=== PATIENT | male | born 1985 | race Caucasian/White ===

== ENCOUNTER 2018-07-15 16:43 | Inpatient (IN) | payer BC, OTHER ==
[~2018-07-15] VITALS: Ht 177.8 cm; Wt 108.6 kg
[2018-07-15] MEDS ORDERED: NS 1,000 ML IV ONE (17:15)
[2018-07-15 17:52] LABS: BASO % 0.4 % (0.0-1.0); HEMATOCRIT 29.6 % (42.0-52.0); HEMOGLOBIN 9.9 g/dl (13.5-17.5); LYMPH # 0.7 10^3/uL (1.5-4.5); LYMPH % 6.4 % (24.0-44.0); MEAN CORPUSCULAR HEMOGLOBIN 29.6 pg (27.0-33.0); MEAN CORPUSCULAR HGB CONC 33.4 g/dl (32.0-36.5); MEAN CORPUSCULAR VOLUME 88.4 fl (80.0-96.0); MONO # 0.2 10^3/uL (0.0-0.8); NEUTROPHILS # 10.1 10^3/uL (1.8-7.7); NEUTROPHILS % 90.1 % (36.0-66.0); PLATELET COUNT, AUTOMATED 317 10^3/uL (150-450); RED BLOOD COUNT 3.35 10^6/uL (4.30-6.10); WHITE BLOOD COUNT 11.2 10^3/uL (4.0-10.0)
[2018-07-15] MEDS ORDERED: ACETAMINOPHEN TAB 650MG DOSE (2X325MG) PO PRN (18:15)
[2018-07-15 18:19] LABS: AMPHETAMINES LEVEL URINE NEGATIVE (NEGATIVE); BARBITURATES URINE NEGATIVE (NEGATIVE); BENZODIAZEPINES URINE NEGATIVE (NEGATIVE); CANNABINOIDS URINE NEGATIVE (NEGATIVE); COCAINE METABOLITE URINE NEGATIVE (NEGATIVE); METHADONE URINE NEGATIVE (NEGATIVE); OPIATES URINE NEGATIVE (NEGATIVE); PHENCYCLIDINE URINE NEGATIVE (NEGATIVE)
[2018-07-15] MEDS ORDERED: NS 1,000 ML IV SCH (18:30)
[2018-07-15 18:46] LABS: INFLUENZA A AMPLIFICATION NEGATIVE (NEGATIVE); INFLUENZA B AMPLIFICATION NEGATIVE (NEGATIVE)
[2018-07-15 18:54] LABS: ACETAMINOPHEN LEVEL < 2.0 UG/ML (10.0-30.0); ALBUMIN 2.4 GM/DL (3.2-5.2); ALT/SGPT 16 U/L (12-78); BILIRUBIN,DIRECT < 0.1 MG/DL (0.0-0.2); BILIRUBIN,TOTAL 0.3 MG/DL (0.2-1.0); BLOOD UREA NITROGEN 37 MG/DL (7-18); CALCIUM LEVEL 7.5 MG/DL (8.5-10.1); CARBON DIOXIDE LEVEL 16 MEQ/L (21-32); CHLORIDE LEVEL 113 MEQ/L (98-107); CPK CREATINE PHOSPHOKINASE 135 U/L (39-308); CREATININE FOR GFR 6.07 MG/DL (0.70-1.30); GLOMERULAR FILTRATION RATE 11.4 (>60); GLUCOSE, FASTING 134 MG/DL (70-100); MAGNESIUM LEVEL 2.1 MG/DL (1.8-2.4); PHOSPHORUS LEVEL 4.7 MG/DL (2.5-4.9); POTASSIUM SERUM 4.1 MEQ/L (3.5-5.1); SALICYLATE LEVEL < 1.7 MG/DL (5.0-30.0); SODIUM LEVEL 142 MEQ/L (136-145); TOTAL PROTEIN 5.2 GM/DL (6.4-8.2)
--- NOTE | 2018-07-15 19:23 | ECGEPIP ---
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
--- NOTE | 2018-07-15 19:37 | HPEPDOC ---
[facility] Medical History & Physical Date of Admission Jul 15, 2018 Attending Physician: KRISTIE SCHULTE MD History and Physical CHIEF COMPLAINT: Cold-like symptoms, ARF HISTORY OF PRESENT ILLNESS: Patient is a 33-year-old white male with a past medical history significant for hypertension, exerciseinduced asthma and migraine headache who presents to the emergency department today from [facility] with with cold-like symptoms for the past 2 days. Patient was found to have abnormal renal labs and was scheduled to be transferred to [facility] for acute renal failure. Patient signed out AMA and presented to [facility] emergency department for further management and evaluation. Patient initially presented to [facility] ER complaining of 3 day history of nonproductive cough, wheezing and bilateral chest pain on inspiration. Patient was afebrile, respiration rate of 18, 98% O2 saturation on room air. Initial blood pressure reading of 161/91. He shares that his 5-year-old daughter had been sick about a week ago. Patient has a history of asthma and utilizes an inhaler as needed. He reports that his inhaler did not relieve his symptoms, which prompted his presentation. He reports that 3 days ago he took 2x 100 mg amoxicillin pills prescribed to his dog. Yesterday, patient took a single pill of 100 mg amoxicillin. Patient denies any other recent medication use, including NSAIDs. He denies any adverse side effects. He denies recent diarrhea, vomiting or dehydration. No history of urinary retention or obstruction. In [facility] emergency department patient was given a 10 mg IVP of dexamethasone which caused a flushing rash. Patient was subsequently given Benadryl 12.5 IVP with complete resolution. He also received a DuoNeb and Xopenex treatment and normal saline. Chest x-ray was performed and indicated no focal consolidation. A UA indicated 3+ protein 500 urine glucose 2+ blood. Strep negative. CBC demonstrated an H/H of 10.2/29.1, no leukocytosis. CMP showed BUN of 36 and a creatinine of 6.3. Previous CMP obtained in 02/07 indicated a BUN of 14 and a creatinine of 1.1. Patient elected to sign out AMA and presented to [facility] in lieu of being transferred to [facility]. Upon presentation to [facility], patient was given an IV bolus of normal saline. Repeat CBC and CMP relatively unchanged from prior studies at [facility]. Toxicology screen negative. Influenza negative. UA demonstrating 3+ protein and 3+ glucose. Hospitalist team was called to admit for further evaluation and management of the patient. 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 Prior tobacco history of one pack per day for roughly 10 years. ETOH: Reports binge drinking in his 20s. No current alcohol abuse. Drug use: Patient denies illicit or intravenous drug use FAMILY HISTORY: Father: Alive, healthy Mother: Alive, healthy Siblings: One brother, healthy Children: One daughter, healthy ALLERGIES: Please see below. REVIEW OF SYSTEMS: CONSTITUTIONAL: Patient reports a brief episode of night sweats last evening. He reports 3 days of fatigue. He denies any fever, chills or changes in weight HEENT: Reports bilateral temporal headache today, reports week history of nasal congestion. Denies ear pain, changes in vision, difficulty swallowing. No hearing loss CARDIOVASCULAR: Regular rate and rhythm, normal S1-S2 no murmurs appreciated RESPIRATORY: Reports 3 day history of increasing shortness of breath with exertion, unrelieved with rescue inhaler. 2-3 day history of nonproductive cough GASTROINTESTINAL: Reports history of reflux, denies nausea or vomiting/hematemesis. Denies abdominal pain, constipation, diarrhea GENITOURINARY: Denies dysuria, hesitancy, frequency, retention, hematuria SKIN: Denies new/evolving skin lesions, denies rash MUSCULOSKELETAL: Denies muscle weakness NEUROLOGICAL: Denies any focal neurologic deficits, change in sensation PSYCHIATRIC: Reports anxiety regarding the custody of his daughter ENDOCRINE: Denies heat or cold intolerance HOME MEDICATIONS: Please see below. PHYSICAL EXAMINATION: VITAL SIGNS: Temperature 97.6, pulse 126, respiratory rate 17, blood pressure 17 5/97 (123) pulse oximetry 96 % on room air. GENERAL APPEARANCE: Patient is awake and alert, no acute distress, able to participate in his care. HEENT: Normocephalic, atraumatic sinus tenderness EOMI PERRLA, no scleral icterus, mucous membranes moist, tympanic membranes free of signs of infection bilaterally. CARDIOVASCULAR: Regular rate and rhythm no murmurs gallops or rubs LUNGS: Clear to auscultation bilaterally, no wheezing rales or rhonchi ABDOMEN: Protuberant, soft, nontender, normal bowel sounds throughout, : No suprapubic tenderness, no CVA tenderness MUSCULOSKELETAL: No weakness appreciated EXTREMITIES: No lower extremity edema, no calf tenderness, peripheral pulses 2+ via radial and DP NEUROLOGICAL: Cranial nerves II through XII grossly intact, strength in extremities intact, no focal neurologic deficit PSYCHIATRIC: Mood and affect are appropriate LABORATORY DATA: See below. IMAGING: Chest x-ray from [facility] (07/15/18): No focal consolidation ASSESSMENT: Patient is a 33-year-old white male who presents to [facility] from [facility] with laboratory evidence of acute renal failure in the setting of 3 day history of cold-like symptoms. PLAN: Acute renal failure - likely secondary to chronic hypertension - Patient presents with a BUN/creatinine of 36/6.3. Baseline studies from 2016 indicate a BUN/creatinine of 14/1.1. - UA negative for nitrite/leukocyte esterase make and infection unlikely. [facility] UA did indicate 2+ blood with no RBCs. Consider rhabdomyolysis. No granular casts, which decreased likelihood of ATN. Confirm with urinary sodium greater than 20. - BUN: Creatinine ratio less than 20:1 suggestive of intra-renal pathology. Should be confirmed using urine osmolality and urine sodium. - Renal ultrasound ordered, consider postvoid residual if postrenal cause suspected. - No rash / skin manifestations or hemoptysis, lowering causes such as HSP and Goodpasture's disease on the differential - No anemia on CBC lowering the likelihood of anemia - Continue with IV hydration - Serial CBCs and BMPs to monitor for anemia and electrolyte abnormalities - Nephrology consulted and we will follow their recommendations Essential hypertension - Patient has a long-standing history of hypertension. Per the medical record, patient was previously seen at a local outpatient office where he was diagnosed with essential hypertension and treated with amlodipine 5 mg daily. He reports that he has not been taking his medication or seen in his physician since September 2017. - Restart amlodipine 5 mg by mouth daily, avoid KALPANA inhibitor until cause of acute renal failure is determined - PRN hydralazine if tighter control required - Monitor for improvement URI - Supportive care including fluids and Tylenol for fever - Monitor for signs of infection with serial - Breathing treatments as needed DVT prophylaxis: Heparin SQ Sequential's Vital Signs Vital Signs Date Time Temp Pulse Resp B/P (MAP) Pulse Ox O2 Delivery O2 Flow Rate FiO2 07/15/18 17:31 172/104 (126) 07/15/18 17:28 126 07/15/18 16:44 97.6 17 96 Room Air Laboratory Data Labs 24H Laboratory Tests 2 07/15/18 17:24: Immature Granulocyte % (Auto) 1.1, White Blood Count 11.2H, Red Blood Count 3.35L, Hemoglobin 9.9L, Hematocrit 29.6L, Mean Corpuscular Volume 88.4, Mean Corpuscular Hemoglobin 29.6, Mean Corpuscular Hemoglobin Concent 33.4, Red Cell Distribution Width 13.1, Platelet Count 317, Neutrophils (%) (Auto) 90.1H, Lymphocytes (%) (Auto) 6.4L, Monocytes (%) (Auto) 2.0, Eosinophils (%) (Auto) 0.0, Basophils (%) (Auto) 0.4, Neutrophils # (Auto) 10.1H, Lymphocytes # (Auto) 0.7L, Monocytes # (Auto) 0.2, Eosinophils # (Auto) 0.0, Basophils # (Auto) 0.0, Nucleated Red Blood Cells % (auto) 0.0, Urine Color STRAW, Urine Appearance CLEAR, Urine pH 6.0, Urine Specific [place] 1.013, Urine Protein 3+H, Urine Glucose (UA) 3+H, Urine Ketones NEGATIVE, Urine Blood NEGATIVE, Urine Nitrite NEGATIVE, Urine Bilirubin NEGATIVE, Urine Urobilinogen 0.2, Urine Leukocyte Esterase NEGATIVE, Urine WBC (Auto) 1, Urine RBC (Auto) 1, Urine Hyaline Casts (Auto) 55, Urine Bacteria (Auto) NEGATIVE, Urine Squamous Epithelial Cells 0, Urine Mucus (Auto) SMALL, Urine Sperm (Auto) , Urine Amphetamines Screen NEGATIVE, Urine Benzodiazepines Screen NEGATIVE, Urine Opiates Screen NEGATIVE, Urine Methadone Screen NEGATIVE, Urine Barbiturates Screen NEGATIVE, Urine P hencyclidine Screen NEGATIVE, Urine Cocaine Metabolite Screen NEGATIVE, Urine Cannabinoids Screen NEGATIVE 07/15/18 18:00: CBC/BMP Laboratory Tests 07/15/18 17:24 Red Blood Count 3.35 L, Mean Corpuscular Volume 88.4, Mean Corpuscular Hemoglobin 29.6, Mean Corpuscular Hemoglobin Concent 33.4, Red Cell Distribution Width 13.1, Neutrophils (%) (Auto) 90.1 H, Lymphocytes (%) (Auto) 6.4 L, Monocytes (%) (Auto) 2.0, Eosinophils (%) (Auto) 0.0, Basophils (%) (Auto) 0.4, Neutrophils # (Auto) 10.1 H, Lymphocytes # (Auto) 0.7 L, Monocytes # (Auto) 0.2, Eosinophils # (Auto) 0.0, Basophils # (Auto) 0.0 Home Medications No Active Prescriptions or Reported Meds Allergies Coded Allergies: Clarithromycin (Verified Allergy, Unknown, 07/15/18) Dexamethasone (Verified Allergy, Unknown, 07/15/18) Penicillins (Verified Allergy, Unknown, 07/15/18) GME ATTESTATION GME ATTESTATION My faculty preceptor for this patient encounter was physically present during the encounter and was fully available. All aspects of the patient interview, examination, medical decision making process, and medical care plan development were reviewed and approved by the faculty preceptor. The faculty preceptor is aware and concurs with the plan as stated in the body of this note and will attest to such by his/her cosignature. SHAD LIRA DO Jul 15, 2018 19:37
[2018-07-15] MEDS ORDERED: ONDANSETRON 4 MG TAB (S0181) PO PRN (19:45)
[2018-07-15 19:50] LABS: HEMOGLOBIN A1c 4.9 %
--- NOTE | 2018-07-15 19:51 | REPVR ---
EXAM: US Retroperitoneal Limited, Kidneys EXAM DATE/TIME: 07/15/2018 7:06 PM CLINICAL HISTORY: 33 years old, male; Abnormal findings; Abnormal lab test; Abnormal kidney function lab tests; Additional info: Jerrod eval for obstruction TECHNIQUE: Imaging protocol: Real-time ultrasound of the retroperitoneum with image documentation. Examination was focused on the kidneys. COMPARISON: No relevant prior studies available. FINDINGS: Right kidney: Hyperechoic renal cortex right kidney. Left kidney: Hyperechoic renal cortex left kidney. Bladder: Normal bladder. Prostate: measures 3.5 x 3.1 x 3.6 cm. IMPRESSION: Hyperechoic renal cortices bilaterally consistent with a renal parenchymal disorder which correlate with renal function studies and clinical history. Electronically signed by: Damien Erwin On 07/15/2018 19:51:19 PM
--- NOTE | 2018-07-15 19:55 | REPVR ---
EXAM: CT Chest Without Contrast EXAM DATE/TIME: 07/15/2018 7:08 PM CLINICAL HISTORY: 33 years old, male; Signs and symptoms; Shortness of breath; Additional info: Renal failure, SOB, R/O pulm renal syndrome TECHNIQUE: Imaging protocol: Axial computed tomography images of the chest without intravenous contrast. Coronal and sagittal reformatted images were created and reviewed. 3D rendering: MIP reconstructed images were created and reviewed. Radiation optimization: All CT scans at this facility use at least one of these dose optimization techniques: automated exposure control; mA and/or kV adjustment per patient size (includes targeted exams where dose is matched to clinical indication); or iterative reconstruction. COMPARISON: CR CHEST 2 VIEW 04/13/2016 10:02 AM FINDINGS: Lungs: Noncalcified pulmonary parenchymal nodules measuring 3 millimeters in the right upper lobe, 7 millimeters in the right middle lobe, and 7 millimeters in the right lower lobe. These are likely postinflammatory. Small linear scar in the right middle lobe. Pulmonary parenchyma otherwise unremarkable. Pleural space: Normal. No pneumothorax. No pleural effusion. Heart: Normal. No cardiomegaly. No pericardial effusion. Aorta: Normal. No aortic aneurysm. Lymph nodes: Unremarkable. No enlarged lymph nodes. Bones/joints: Unremarkable. No acute fracture. Soft tissues: Unremarkable. IMPRESSION: Noncalcified pulmonary parenchymal nodules measuring 3 millimeters in the right upper lobe, 7 millimeters in the right middle lobe, and 7 millimeters in the right lower lobe. These are likely postinflammatory. For patients at low risk (minimal or absent history of smoking and of other known risk factors), recommend CT at 3-6 months, then consider CT at 18-24 months. For patients at high risk (history of smoking or of other known risk factors), recommend CT at 3-6 months, then CT at 18-24 months. (Rasheeda et al., Fleischner Society, 2017). Electronically signed by: Damien Erwin On 07/15/2018 19:55:26 PM
[2018-07-15 19:56] LABS: CHOLESTEROL LEVEL 202 MG/DL (<200); CHOLESTEROL RISK RATIO 4.122 (<5); COMPLEMENT C3 103 MG/DL (90-180); COMPLEMENT C4 25 MG/DL (10-40); HDL CHOLESTEROL 49 MG/DL (>40); INR 1.05; LDL CHOLESTEROL 132 MG/DL (<100); NON-HDL-C 153 MG/DL; PROTHROMBIN TIME 13.8 SECONDS (12.1-14.4); TRIGLYCERIDES LEVEL 105 MG/DL (<150)
[2018-07-15 20:45] VITALS: BP 145/89
[2018-07-15] MEDS ORDERED: VENTAER IN (21:07)
[2018-07-15] MEDS ORDERED: METOPROLOL TART 25 MG TABLET PO ONE (22:15)
[2018-07-15 22:50] VITALS: BP 158/72
[2018-07-15] MEDS: HEPARIN SOD (PORCINE) 5000 UNITS/ML VIAL SC SCH (22:54)
[2018-07-16] VITALS (9 sets, daily range): BP systolic 137–170; BP diastolic 74–96
[2018-07-16] MEDS: HEPARIN SOD (PORCINE) 5000 UNITS/ML VIAL SC SCH ×3 (05:00→20:29)
[2018-07-16 06:47] LABS: HEMATOCRIT 29.2 % (42.0-52.0); HEMOGLOBIN 9.8 g/dl (13.5-17.5); MEAN CORPUSCULAR HGB CONC 33.6 g/dl (32.0-36.5); MEAN CORPUSCULAR VOLUME 89.3 fl (80.0-96.0); PLATELET COUNT, AUTOMATED 308 10^3/uL (150-450); RED BLOOD COUNT 3.27 10^6/uL (4.30-6.10); WHITE BLOOD COUNT 11.5 10^3/uL (4.0-10.0)
[2018-07-16 07:07] LABS: CREATININE FOR GFR 6.48 MG/DL (0.70-1.30); GLOMERULAR FILTRATION RATE 10.5 (>60); POTASSIUM SERUM 4.2 MEQ/L (3.5-5.1)
[2018-07-16 07:23] LABS: PERCENT SATURATION 51.8 % (19.7-50.0)
--- NOTE | 2018-07-16 08:06 | IPNPDOC ---
Date Seen The patient was seen on 07/16/18. Progress Note SUBJECTIVE: denies sob, urinated "three times. it's in there." overnight, no hyperkalemia or metabolic acidosis. recent sore throat s/p self-administration of his dog's "amoxicillin" no fever or chills. no hematuria. plans for dialysis catheter today, and renal biopsy this week. PHYSICAL EXAMINATION: VITAL SIGNS:pls see below GENERAL APPEARANCE: AAOx 3 answering questions appropriately HEENT:no pallor or icterus no pharyngeal erythema or tonsillar exudates. no jvd, or cervical LAD CARDIOVASCULAR: Regular rate and rhythm no murmurs gallops or rubs LUNGS: Clear to auscultation bilaterally, no wheezing rales or rhonchi ABDOMEN: obese soft, nontender, normal bowel sounds throughout, : No suprapubic tenderness, no CVA tenderness MUSCULOSKELETAL: No weakness appreciated EXTREMITIES: No lower extremity edema, no calf tenderness, peripheral pulses 2+ via radial and DP LABORATORY DATA, IMAGING STUDIES: See below. IMAGING: Chest x-ray from [facility] (07/15/18): No focal consolidation ASSESSMENT/PLAN: Patient is a 33-year-old white male with a past medical history significant for hypertension, exerciseinduced asthma and migraine headache who presents to the emergency department today from [facility] with with cold-like symptoms for the past 2 days. Patient was found to have abnormal renal labs and was scheduled to be transferred to [facility] for acute renal failure. Patient signed out AMA and presented to [facility] emergency department for further management and evaluation.Patient initially presented to [facility] ER complaining of 3 day history of nonproductive cough, wheezing and bilateral chest pain on inspiration. Patient was afebrile, respiration rate of 18, 98% O2 saturation on room air. Initial blood pressure reading of 161/91. He shares that his 5-year-old daughter had been sick about a week ago. Patient has a history of asthma and utilizes an inhaler as needed. He reports that his inhaler did not relieve his symptoms, which prompted his presentation. He reports that 3 days ago he took 2x 100 mg amoxicillin pills prescribed to his dog. Yesterday, patient took a single pill of 100 mg amoxicillin. Patient denies any other recent medication use, including NSAIDs. He denies any adverse side effects. He denies recent diarrhea, vomiting or dehydration. No history of urinary retention or obstruction.In [facility] emergency department patient was given a 10 mg IVP of dexamethasone which caused a flushing rash. Patient was subsequently given Benadryl 12.5 IVP with complete resolution. He also received a DuoNeb and Xopenex treatment and normal saline. Chest x-ray was performed and indicated no focal consolidation. A UA indicated 3+ protein 500 urine glucose 2+ blood. Strep negative. CBC demonstrated an H/H of 10.2/29.1, no leukocytosis. CMP showed BUN of 36 and a creatinine of 6.3. Previous CMP obtained in 02/07 indicated a BUN of 14 and a creatinine of 1.1. Patient elected to sign out AMA and presented to [facility] in lieu of being transferred to [facility].Upon presentation to [facility], patient was given an IV bolus of normal saline. Repeat CBC and CMP relatively unchanged from prior studies at [facility]. Toxicology screen negative. Influenza negative. UA demonstrating 3+ protein and 3+ glucose. Hospitalist team was called to admit for further evaluation and management of the patient. Acute Renal Failure denies sob, urinated "three times. it's in there." overnight, no hyperkalemia or metabolic acidosis. recent sore throat s/p self-administration of his dog's "amoxicillin" no fever or chills. no hematuria. s/p trial of fluids. -h/o recent sore throat, with persistent azotemia, proteinuria. r/o glomerular disease. HD catheter to be placed today and renal biopsy this week. - Nephrology consulted and we will follow their recommendations Essential hypertension avoid KALPANA inh and diuretics Sore throat -negative strep Obesity BMI 37 complicating care DVT prophylaxis: Heparin SQ Sequential's VS, I&O, 24H, Fishbone Vital Signs/I&O Vital Signs Date Time Temp Pulse Resp B/P (MAP) Pulse Ox O2 Delivery O2 Flow Rate FiO2 07/16/18 04:00 98.8 99 18 137/80 (99) 97 07/15/18 17:30 Room Air I&O- Last 24 Hours up to 6 AM 07/16/18 05:59 Intake Total 600 ml Output Total 750 ml Balance -150 ml Laboratory Data 24H LABS Laboratory Tests 2 07/15/18 17:24: Immature Granulocyte % (Auto) 1.1, White Blood Count 11.2H, Red Blood Count 3.35L, Hemoglobin 9.9L, Hematocrit 29.6L, Mean Corpuscular Volume 88.4, Mean Corpuscular Hemoglobin 29.6, Mean Corpuscular Hemoglobin Concent 33.4, Red Cell Distribution Width 13.1, Platelet Count 317, Neutrophils (%) (Auto) 90.1H, Lymphocytes (%) (Auto) 6.4L, Monocytes (%) (Auto) 2.0, Eosinophils (%) (Auto) 0.0, Basophils (%) (Auto) 0.4, Neutrophils # (Auto) 10.1H, Lymphocytes # (Auto) 0.7L, Monocytes # (Auto) 0.2, Eosinophils # (Auto) 0.0, Basophils # (Auto) 0.0, Nucleated Red Blood Cells % (auto) 0.0, Urine Color STRAW, Urine Appearance CLEAR, Urine pH 6.0, Urine Specific [place] 1.013, Urine Protein 3+H, Urine Glucose (UA) 3+H, Urine Ketones NEGATIVE, Urine Blood NEGATIVE, Urine Nitrite NEGATIVE, Urine Bilirubin NEGATIVE, Urine Urobilinogen 0.2, Urine Leukocyte Esterase NEGATIVE, Urine WBC (Auto) 1, Urine RBC (Auto) 1, Urine Hyaline Casts (Auto) 55, Urine Bacteria (Auto) NEGATIVE, Urine Squamous Epithelial Cells 0, Urine Mucus (Auto) SMALL, Urine Sperm (Auto) , Anion Gap 13, Glomerular Filtration Rate 11.4L, Calcium Level 7.5L, Phosphorus Level 4.7, Magnesium Level 2.1, Aspartate Amino Transf (AST/SGOT) 14, Alanine Aminotransferase (ALT/SGPT) 16, Alkaline Phosphatase 56, Total Bilirubin 0.3, Direct Bilirubin < 0.1, Total Creatine Kinase 135, Total Protein 5.2L, Albumin 2.4L, Albumin/Globulin Ratio 0.86L, Salicylates Level < 1.7L, Urine Amphetamines Screen NEGATIVE, Urine Benzodiazepines Screen NEGATIVE, Urine Opiates Screen NEGATIVE, Urine Methadone Screen NEGATIVE, Acetaminophen Level < 2.0L, Urine Barbiturates Screen NEGATIVE, Urine Phencyclidine Screen NEGATIVE, Urine Cocaine Metabolite Screen NEGATIVE, Urine Cannabinoids Screen NEGATIVE 07/15/18 18:00: Influenza Type A (RT-PCR) NEGATIVE, Influenza Type B (RT-PCR) NEGATIVE 07/15/18 19:22: Prothrombin Time 13.8, Prothromb Time International Ratio 1.05, Estimated Mean Plasma Glucose 94, Hemoglobin A1c 4.9, Total Protein (PEP) 5.0L, Triglycerides Level 105, LDL Cholesterol 132H, Total Cholesterol 202H, Non-HDL Cholesterol (LDL + VLDL) 153, Total HDL Cholesterol 49, Cholesterol/HDL Ratio 4.122, Complement C3 103, Complement C4 25 07/16/18 06:32: Nucleated Red Blood Cells % (auto) 0.0, Anion Gap 11, Glomerular Filtration Rate 10.5L, Calcium Level 8.0L, Blood Urea Nitrogen 43H, Creatinine 6.48H, Sodium Lev el 141, Potassium Level 4.2, Chloride Level 114H, Carbon Dioxide Level 16L, Iron Level 132, Total Iron Binding Capacity 255, Transferrin % Saturation 51.8H, Ferritin 138 CBC/BMP Laboratory Tests 07/15/18 17:24 Red Blood Count 3.35 L, Mean Corpuscular Volume 88.4, Mean Corpuscular Hemoglobin 29.6, Mean Corpuscular Hemoglobin Concent 33.4, Red Cell Distribution Width 13.1, Neutrophils (%) (Auto) 90.1 H, Lymphocytes (%) (Auto) 6.4 L, Monocytes (%) (Auto) 2.0, Eosinophils (%) (Auto) 0.0, Basophils (%) (Auto) 0.4, Neutrophils # (Auto) 10.1 H, Lymphocytes # (Auto) 0.7 L, Monocytes # (Auto) 0.2, Eosinophils # (Auto) 0.0, Basophils # (Auto) 0.0 07/16/18 06:32 Red Blood Count 3.27 L, Mean Corpuscular Volume 89.3, Mean Corpuscular Hemoglobin 30.0, Mean Corpuscular Hemoglobin Concent 33.6, Red Cell Distribution Width 12.9, Calcium Level 8.0 L LUKE ALANIZ MD Jul 16, 2018 08:06
[2018-07-16] MEDS: METOPROLOL TART 25 MG TABLET PO SCH ×2 (08:20→20:30)
[2018-07-16] MEDS: ALBUTEROL SULFATE 2.5 MG/0.5 ML INH NEB SOLN NEB PRN ×4 (08:21→23:14)
[2018-07-16] MEDS: amLODIPine 5 MG TAB PO SCH (12:25)
[2018-07-16] MEDS ORDERED: SLF 3 ML SYR IV PRN (12:45)
--- NOTE | 2018-07-16 13:22 | CR ---
DATE OF CONSULTATION: 07/15/2018 CONSULTATION REPORT FOR: Dr. Sindi Bustos REASON FOR CONSULTATION: Management of acute renal failure, hypertension, and associated complications. CHIEF COMPLAINT: Shortness of breath, chest pain, and abnormal laboratories at another hospital. HISTORY OF PRESENT ILLNESS: Mr. Eduin Kerns is a 33-year-old male with a past medical history of hypertension diagnosed about three years ago. He does not regularly followup with any physician. He reports that his physician moved out of the area. He was supposed to establish care with another doctor but he never followed up. He is taking off-and-on medications for hypertension as needed. He also gives history of asthma which is exercise induced and for asthma as well, he takes as-needed medications sometimes. He is not regularly following up with any physician. No significant history of renal disease in the past. He was in his usual state of health about three days ago when reportedly he got a cold from his daughter and he started having upper respiratory symptoms including a runny nose, cough, and chest congestion. His symptoms did not get better. He tried using the inhaler at home that did not help and apparently he also took the amoxicillin which was prescribed to his dog. His symptoms did not get better. He presented to the [facility] where he was found to have abnormal laboratories including acute renal failure with a creatinine more than 6. There was no nephrology service available at their hospital so he was advised to get transferred to [facility] in [place] but the patient refused to go there. He signed out against medical advice (AMA) over there and he presented to the [facility] Emergency Room over here. Further evaluation in the emergency room today showed that the patient had a creatinine of 6.07. Urinalysis showed 3+ protein. He was hypertensive in the emergency room. Blood pressure in our record is 175/97. The patient was admitted under the hospitalist service for acute renal failure, accelerated hypertension, and nephrology service was called for further help in the management of acute renal failure. This young patient required my immediate attention because of renal failure. I emergently saw the patient in the evening today. History was obtained, patient was examined, further workup for the proteinuria and possible autoimmune disease or glomerulonephritis was all ordered. I ordered the imaging and all the images were reviewed and further plan of care was discussed with the patient. PAST MEDICAL HISTORY: History of hypertension for about three years, exercise-induced asthma, history of obesity. PAST SURGICAL HISTORY: He reports history of left hand surgery for fractures in the hand. No other surgical history in the past. ALLERGIES: The patient reports a history of allergies to PENICILLIN but he recently took amoxicillin that was prescribed to his dog. He also reports that he was given dexamethasone today and after a few mL of dexamethasone he started having pins and needle sensation in the body so it was stopped and he was given Benadryl. FAMILY HISTORY: No significant family history of end-stage renal disease requiring dialysis. He reports that one of his cousins needed a kidney transplant but he does not know the reason of renal failure. SOCIAL HISTORY: The patient is . He lives in his own home. 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 He has one daughter who is 5 years old. He quit smoking almost seven months ago. He denies any illicit drug abuse. He denies any alcohol abuse at this time. REVIEW OF SYSTEMS: CONSTITUTIONAL: He denies any fevers and chills. He does report having night sweats yesterday. EYES: He denies any blurry vision or double vision. EARS, NOSE, AND THROAT (ENT): He denies any dysphagia, odynophagia, ear discharge. CARDIOVASCULAR: He does report some chest pressure and palpitations. RESPIRATORY: He reports shortness of breath and chest congestion for about three days. GASTROINTESTINAL (GI): He reports nausea and sometimes decreased appetite. He sometimes has vomiting in the morning. GENITOURINARY: He denies any dysuria, hematuria, or dark urine. He reports that sometimes he sees foaming on the urine. MUSCULOSKELETAL: He denies any muscle aches and pains. SKIN: He denies any rashes or ulcers. PSYCHIATRIC: He denies any depression or anxiety. HEMATOLOGICAL/ONCOLOGIC: He denies any easy bleeding or bruising. CENTRAL NERVOUS SYSTEM (TRADE SPECIALIST): He denies any strokes, weakness, or seizures. ENDOCRINE: He denies any history of hyperthyroidism, hypothyroidism, or diabetes. All other review of systems is negative. PHYSICAL EXAMINATION: GENERAL: The patient is awake, alert and oriented times three, laying in bed, in no apparent distress. He is obese. VITAL SIGNS: Temperature is 97.6 degrees Fahrenheit, blood pressure 145/89, pulse is 120, respiratory rate of 16, saturating 97% on room air. HEAD/NECK: Extraocular muscles intact. Pupils are equally round and reactive to light. Mucous membranes are moist. Neck is supple. There is mildly elevated jugular venous distention (JVD). CARDIOVASCULAR: S1, S2, tachycardia. No edema of the bilateral lower extremities. RESPIRATORY: Chest is clear to auscultation bilaterally. Bilateral equal air entry. No rales or rhonchi. ABDOMEN: Soft, obese, positive bowel sounds, nontender. No organomegaly. GENITOURINARY: No hernia was noted. Bladder is not palpable. Bedside bladder scan was done and postvoid residual was less than 100 mL. MUSCULOSKELETAL: No clubbing or cyanosis. Pulses are 2+. SKIN: No rashes or ulcers. CENTRAL NERVOUS SYSTEM (TRADE SPECIALIST): No focal deficit. Power is 5/5 in all extremities. LYMPHATICS: No significant cervical, axillary, or inguinal lymphadenopathy. LABORATORY REVIEW: CBC showed a WBC of 11.2, hemoglobin is 9.9, platelets are 317. INR is 1.05. Urinalysis showed 3+ protein, 3+ glucose. No blood. No leukocyte esterase. CMP showed sodium 142, potassium 4.1, chloride 113, bicarbonate is 16, BUN 36, creatinine is 6, A1c 4.9, calcium 7.5, phosphorus 4.7, magnesium is 2.1, albumin is 2.4. Toxicology report is negative so far. Serum immunology was just sent today. Influenza A and B is negative. IMAGING STUDIES: CAT scan of the chest was done today which showed noncalcified pulmonary parenchyma nodules likely postinflammatory. No acute infiltrates were seen. Renal ultrasound was done today which showed bilateral kidneys had hyperechoic cortex consistent with renal parenchymal disorder. CURRENT INPATIENT MEDICATIONS: The patient received IV normal saline bolus. He was also receiving normal saline at 100 mL an hour which was stopped. He is on Tylenol as needed, albuterol as needed for shortness of breath and wheezing. He has been started on amlodipine 5 mg daily. He is on heparin subcutaneous. He is on Zofran as needed. ASSESSMENT: A 33-year-old male with acute renal failure, proteinuria, accelerated hypertension, anemia, and metabolic acidosis. PLAN: 1. Acute renal failure. Etiology of the renal failure is unknown. The patient has proteinuria. I have ordered all the proteinuria workup and autoimmune serology. The patient is a young patient who presented in renal failure with no significant past medical history of nephrotic syndrome or renal disease. He will need a biopsy to look for the etiology of renal failure and for help in future renal transplant as well. Given the extent of renal damage, the patient will need to start renal replacement therapy. I have discussed the modality of hemodialysis and peritoneal dialysis with him. At this point, he will need tunneled dialysis catheter placement and start hemodialysis and later on if he wishes to switch to peritoneal dialysis and do it at home, he can do it electively. 2. Metabolic acidosis. The patient has normal anion gap metabolic acidosis, most likely secondary to renal failure. Acidosis will be controlled with dialysis. No need of oral bicarbonate administration at this point. 3. Anemia and chronic kidney disease. I am going to check the iron levels. If needed, he will be given Venofer with dialysis. If iron levels are adequate, he will started on Aranesp. 4. Accelerated hypertension. The patient is chronically noncompliant with antihypertensive medications. He was given normal saline bolus in the emergency room (ER) that might have also contributed to elevated blood pressures. He was already started on amlodipine 5 mg daily by the primary team. I would continue the amlodipine and also start the patient on metoprolol 25 mg by mouth twice a day because the patient has tachycardia as well. 5. Secondary hyperparathyroidism. Because of renal failure, there is a possibility of secondary hyperparathyroidism. I have ordered parathyroid hormone (PTH) level to be done tomorrow morning. If needed, the patient will be started on calcitriol. 6. Proteinuria. The patient has 3+ protein on the urinalysis. I have ordered 24-hour urine protein and creatinine, antinuclear antibody (ASIF), antineutrophil cytoplasmic antibodies (ANCA), xyff-[id number]-uxsgysja DNA antibody, antiglomerular basement membrane antibody, complement 3, complement 4, cryoglobulin, hepatitis profile, and syphilis serology. The patient should also get a biopsy during this hospitalization for the etiology of renal failure. 7. Nutrition. The patient will be on a renal diet with 1800 mL fluid restriction daily. Thank you for involving nephrology service in the care of this patient. Nephrology will follow the patient along with you tomorrow morning. Total critical care time spent in the emergent management of this patient today evening in the hospital was 45 minutes and that does not include any procedures.
[2018-07-16] MEDS: SLF 3 ML SYR IV SCH ×2 (14:00→20:31)
[2018-07-16 19:46] LABS: CRYOGLOBULINS NEGATIVE (NEGATIVE)
[2018-07-17] MEDS ORDERED: guaiFENesin DM LIQ 10ML UD PO PRN ×2 (02:00→07:30)
[2018-07-17] MEDS: ALBUTEROL SULFATE 2.5 MG/0.5 ML INH NEB SOLN NEB PRN ×2 (04:36→22:45)
[2018-07-17] MEDS: SLF 3 ML SYR IV SCH ×3 (05:15→21:03)
[2018-07-17] MEDS: HEPARIN SOD (PORCINE) 5000 UNITS/ML VIAL SC SCH ×3 (05:15→21:03)
--- NOTE | 2018-07-17 06:57 | ECHO ---
DATE OF STUDY: 07/16/2018 REFERRING PHYSICIAN: Dr. Vazquez INDICATION: Dyspnea. HEIGHT: 5 feet 10 inches. WEIGHT: 253 pounds 8 ounces. 2-D MEASUREMENTS: Aortic root: 3.9 cm Proximal ascending aorta: 3.6 cm Left atrium: 4.2 cm Ventricular septum: 1.11 cm Posterior wall: 1.19 cm Left ventricle diastole: 5.8 cm Left ventricle systole: 3.7 cm Right ventricle: 4.4 cm Inferior vena cava: 1.7 cm with more than 50% respiratory variation DOPPLER MEASUREMENTS: Aortic valve velocity: 152 cm/sec LVOT velocity: 129 cm/sec LVOT VTI: 25.1 cm Mitral E velocity: 114 cm/sec Mitral A velocity: 82.0 cm/sec Mitral deceleration time: 187 ms Trace tricuspid regurgitation Pulmonary artery systolic pressure 12 mmHg by pulmonary acceleration time MITRAL ANNULAR TISSUE DOPPLER: E prime lateral: 15.0 cm/sec E prime septal: 12.7 cm/sec DESCRIPTION: The rhythm was sinus. Image quality was adequate. This was a 2-D, M-mode, color flow Doppler and pulse wave Doppler examination and included mitral annular tissue Doppler. No pericardial effusion. CONCLUSIONS: 1. Mildly dilated left ventricle at end diastole. Normal left ventricle regional wall motion and wall thickening. Normal LV systolic function. LVEF 65% by visual estimate. Normal LV diastolic function. 2. Mild dilatation of the aortic root at the level of sinus of Valsalva. 3. Otherwise normal appearing echocardiogram-Doppler.
[2018-07-17] MEDS ORDERED: CHLORASEPTIC SPRAY MT PRN (07:30)
[2018-07-17 07:46] LABS: CREATININE 24 HOUR, URINE 1766.4 MG/24HR (950-2500); CREATININE, URINE 76.8 MG/DL; TOTAL PROTEIN 24 HOUR URINE 21323.3 MG/24HR (50-150)
[2018-07-17 07:48] LABS: URINE TOTAL PROTEIN 927.1 MG/DL (0-12)
--- NOTE | 2018-07-17 08:16 | REP ---
Chest x-ray: Two views. History: Cough, shortness of breath. Renal failure. . Comparison study: April 13, 2016 . Findings: The lungs are well inflated and free of infiltrate. The pleural angles are sharp. The heart size is normal. Pulmonary vasculature is not increased. No significant bony abnormality is seen. Impression: Negative chest x-ray. Electronically Signed by Pedro Espana MD 07/17/2018 08:08 A
[2018-07-17] MEDS ORDERED: HEPARIN 1,000 UNITS/ML 10ML VIAL (FOR RADIOLOGY& DIALYSIS ONLY) As Ordered ONE (08:54)
[2018-07-17] MEDS ORDERED: LIDOCAINE 2% MDV 20 ML VIAL As Ordered ONE (08:54)
[2018-07-17] MEDS ORDERED: CEPACOL LOZENGE PO ONE (09:00)
[2018-07-17] MEDS ORDERED: CHLORASEPTIC SPRAY MT ONE (09:00)
[2018-07-17] MEDS ORDERED: guaiFENesin DM LIQ 10ML UD PO ONE (09:00)
[2018-07-17 10:24] LABS: PTH INTACT 136.1 PG/ML (18.5-88.0)
[2018-07-17 10:30] VITALS: BP 201/119
[2018-07-17] MEDS: METOPROLOL TART 25 MG TABLET PO SCH ×2 (10:36→20:10)
[2018-07-17] MEDS: amLODIPine 5 MG TAB PO SCH (10:36)
[2018-07-17 10:45] VITALS: BP 167/78
[2018-07-17 10:46] LABS: HEPATITIS B SURFACE ANTIBODY POSITIVE (POSITIVE); HEPATITIS B SURFACE ANTIGEN NEGATIVE (NEGATIVE)
[2018-07-17 10:58] LABS: BASO # 0.1 10^3/uL (0.0-0.2); BASO % 0.8 % (0.0-1.0); EOS # 0.1 10^3/uL (0.0-0.50); EOS % 1.7 % (0.0-3.0); HEMOGLOBIN 9.6 g/dl (13.5-17.5); LYMPH # 1.3 10^3/uL (1.5-4.5); LYMPH % 18.3 % (24.0-44.0); MEAN CORPUSCULAR HEMOGLOBIN 29.5 pg (27.0-33.0); MEAN CORPUSCULAR HGB CONC 33.1 g/dl (32.0-36.5); MEAN CORPUSCULAR VOLUME 89.2 fl (80.0-96.0); MONO # 0.7 10^3/uL (0.0-0.8); MONO % 9.7 % (0.0-5.0); NEUTROPHILS % 68.8 % (36.0-66.0); PLATELET COUNT, AUTOMATED 258 10^3/uL (150-450); RED BLOOD COUNT 3.25 10^6/uL (4.30-6.10); WHITE BLOOD COUNT 7.2 10^3/uL (4.0-10.0)
[2018-07-17 10:59] LABS: HEPATITIS B CORE ANTIBODY IGM NEGATIVE (NEGATIVE)
--- NOTE | 2018-07-17 11:02 | IPN ---
DATE OF SERVICE: 07/16/2018 SUBJECTIVE: Eduin is seen and examined this morning at the bedside. He denies any overnight events. 24 hour urine collection is ongoing. Dr. Graves will place the hemodialysis catheter on Tuesday morning and we will plan for first dialysis on Tuesday. I also had a lengthy discussion with the patient and his mother regarding his renal failure of uncertain etiology and need for further work up including renal biopsy. VITAL SIGNS: Temperature 98.1, pulse 95, respiratory rate 18, blood pressure 142/93, saturating 96% on room air. Intake and output yesterday is not fully recorded. Urine output thus far today is 2 liters. Weight on the bed scale is 115 kg. GENERAL: Patient is seen sitting up in bed. Young man, well built, in no distress. Extraocular muscles are intact. Sclerae are anicteric. Tongue is moist. Neck is supple. No jugular venous distention. CARDIAC: Regular rate and rhythm. No friction murmur. No rubs. LUNGS: Show wheezing bilaterally, but no crackle, rale or rhonchus. There is no tachypnea. ABDOMEN: Soft. Nontender. There are bowel sounds. EXTREMITIES: Negative for edema, clubbing or cyanosis. SKIN: Shows no lesions or rashes. NEUROLOGIC: He is oriented times four, interactive, appropriate, conversational, no focal deficits. LABS: White count 11.5, hemoglobin 9.8, and platelets 308. Sodium 141, potassium 4.2, bicarbonate 16, BUN 43, creatinine 6.4. C3 and C4 came back within normal limits. Remainder immunology and serology workup is pending. INPATIENT MEDICATIONS: Reviewed by myself. Patient continues on metoprolol and amlodipine. There is no medication changes from prior. PROBLEMS: 1. Nonoliguric renal failure. Etiology unknown. Proteinuria noted. 24 hour urine collection in process. Autoimmune serologies sent and pending. Patient reports he had blood work within the past two years with [facility]. I will obtain outpatient records on Tuesday. We will plan for renal biopsy this week and he will have PermaCath placement on Tuesday morning and plan for first hemodialysis treatment on Tuesday afternoon. His renal ultrasound did show hyperechoic kidneys suggesting that the renal failure has been chronic for some time. 2. Non anion gap metabolic acidosis. It is secondary to renal failure and it will improve with hemodialysis initiation. 3. Anemia of chronic kidney disease. Iron levels are acceptable. We will start the patient on Aranesp. 4. Hypertension. Blood pressures have improved with amlodipine and metoprolol. No need for any IV fluids.
[2018-07-17 11:21] LABS: CALCIUM LEVEL 7.8 MG/DL (8.5-10.1); CREATININE FOR GFR 6.62 MG/DL (0.70-1.30); GLOMERULAR FILTRATION RATE 10.3 (>60); POTASSIUM SERUM 4.1 MEQ/L (3.5-5.1)
[2018-07-17 12:00] VITALS: BP 150/78
[2018-07-17] MEDS: CEPACOL LOZENGE PO PRN ×2 (13:23→20:10)
--- NOTE | 2018-07-17 13:45 | IPNPDOC ---
Text Note Date of Service The patient was seen on 07/17/18. NOTE SUBJECTIVE: Patient was interviewed and examined in the dialysis unit. This morning, patient had a Permacath placed by Dr. Graves with hemodialysis this afternoon. Continues to complain of sore throat and upper airway congestion. Patient denies any shortness of breath, chest pain, chest pressure. No abdominal pain. Does report a single episode of loose stools yesterday. He has been urinating without difficulty, yellow in color. PHYSICAL EXAMINATION: VITAL SIGNS:pls see below GENERAL APPEARANCE: Patient is alert and oriented, no acute distress, able to answer questions and participate in his care HEENT: No pallor or icterus no pharyngeal erythema or tonsillar exudates. no JVD, or cervical LAD CARDIOVASCULAR: Regular rate and rhythm without murmurs gallops or rubs LUNGS: Clear to auscultation bilaterally, without crackles, no wheezing rales or rhonchi ABDOMEN: obese, soft, nontender, nondistended, normal bowel sounds throughout : No suprapubic tenderness, no CVA tenderness MUSCULOSKELETAL: Patient is able to move all extremities equally bilaterally, no weakness EXTREMITIES: No lower extremity edema, no calf tenderness, peripheral pulses 2+ via radial and DP, capillary refill <2 seconds LABORATORY DATA, IMAGING STUDIES: See below. IMAGING: Chest x-ray from [facility] (07/15/18): No focal consolidation Chest x-ray (07/17/18): Negative CXR ASSESSMENT/PLAN: Patient is a 33-year-old white male with a past medical history significant for hypertension, exerciseinduced asthma and migraine headache who presents to the emergency department today from [facility] with with cold-like symptoms for the past 2 days. Patient was found to have abnormal renal labs and was scheduled to be transferred to [facility] for acute renal failure. Patient signed out AMA and presented to [facility] emergency department for further management and evaluation.Patient initially presented to [facility] ER complaining of 3 day history of nonproductive cough, wheezing and bilateral chest pain on inspiration. Patient was afebrile, respiration rate of 18, 98% O2 saturation on room air. Initial blood pressure reading of 161/91. He shares that his 5-year-old daughter had been sick about a week ago. Patient has a history of asthma and utilizes an inhaler as needed. He reports that his inhaler did not relieve his symptoms, which prompted his presentation. He reports that 3 days ago he took 2x 100 mg amoxicillin pills prescribed to his dog. Yesterday, patient took a single pill of 100 mg amoxicillin. Patient denies any other recent medication use, including NSAIDs. He denies any adverse side effects. He denies recent diarrhea, vomiting or dehydration. No history of urinary retention or obstruction.In [facility] emergency department patient was given a 10 mg IVP of dexamethasone which caused a flushing rash. Patient was subsequently given Benadryl 12.5 IVP with complete resolution. He also received a DuoNeb and Xopenex treatment and normal saline. Chest x-ray was performed and indicated no focal consolidation. A UA indicated 3+ protein 500 urine glucose 2+ blood. Strep negative. CBC demonstrated an H/H of 10.2/29.1, no leukocytosis. CMP showed BUN of 36 and a creatinine of 6.3. Previous CMP obtained in 02/07 indicated a BUN of 14 and a creatinine of 1.1. Patient elected to sign out AMA and presented to [facility] in lieu of being transferred to [facility].Upon presentation to [facility], patient was given an IV bolus of normal saline. Repeat CBC and CMP relatively unchanged from prior studies at [facility]. Toxicology screen negative. Influenza negative. UA demonstrating 3+ protein and 3+ glucose. Hospitalist team was called to admit for further evaluation and management of the patient. Acute Renal Failure 2/2 to unknown etiology - h/o recent sore throat, with persistent azotemia, proteinuria. r/o glomerular disease. - Nephrology consulted and we will follow their recommendations - Magnesium of 2.1, potassium of 4.1, - Complement C3/C4 WNL - ASIF, ANCA, Glomerular basement membrane IgG pending. - Cryoglobulin negative, alpha, beta and gamma globulins pending, Syphilis nonreactive, Hep Bs only positive, Hep C negative. - HD catheter placed this morning. - HD scheduled for this afternoon - Renal biopsy planned for later this week. Essential hypertension - Patient has a long-standing history of hypertension. Per the medical record, patient was previously seen at a local outpatient office where he was diagnosed with essential hypertension and treated with amlodipine 5 mg daily. Metoprolol 25 mg BID started on 07/16/18 for tighter control. - Avoid [place] and diuretics - No IV fluids at this time - 1800 mL fluid restriction Non-anion gap metabolic acidosis - Anticipate improvement with HD URI - Sore throat improving today - Negative strep - Chloraseptic [place] Q2H PRN - Cepacol lozenge PRN Secondary Hyperparathyroidism -likely 2/2 to chronic renal disease - Calcium 7.8, Phos 4.7 - PTH pending, plan to consider Calcitriol Obesity BMI 37 - Complicating care DVT prophylaxis: -Heparin SQ -Sequential's Disposition: Consider D/C at week's end VS,Fishbone, I+O VS, Fishbone, I+O Laboratory Tests 07/17/18 10:46 Red Blood Count 3.25 L, Mean Corpuscular Volume 89.2, Mean Corpuscular Hemoglobin 29.5, Mean Corpuscular Hemoglobin Concent 33.1, Red Cell Distribution Width 12.4, Neutrophils (%) (Auto) 68.8 H, Lymphocytes (%) (Auto) 18.3 L, Monocytes (%) (Auto) 9.7 H, Eosinophils (%) (Auto) 1.7, Basophils (%) (Auto) 0.8, Neutrophils # (Auto) 5.0, Lymphocytes # (Auto) 1.3 L, Monocytes # (Auto) 0.7, Eosinophils # (Auto) 0.1, Basophils # (Auto) 0.1, Calcium Level 7.8 L Vital Signs Date Time Temp Pulse Resp B/P (MAP) Pulse Ox O2 Delivery O2 Flow Rate FiO2 07/17/18 12:00 97.9 87 18 150/78 (102) 95 07/15/18 17:30 Room Air I&O- Last 24 Hours up to 6 AM0 07/17/18 06:00 Intake Total 1560 ml Output Total 2675 ml Balance -1115 ml GME ATTESTATION GME ATTESTATION My faculty preceptor for this patient encounter was physically present during the encounter and was fully available. All aspects of the patient interview, examination, medical decision making process, and medical care plan development were reviewed and approved by the faculty preceptor. The faculty preceptor is aware and concurs with the plan as stated in the body of this note and will attest to such by his/her cosignature. SHAD LIRA DO Jul 17, 2018 13:45
[2018-07-17 14:41] LABS: ALBUMIN 2.73 GM/DL (3.29-5.55); ALBUMIN % 54.5 % (55.8-66.1); ALPHA-1-GLOBULIN % 7.3 % (2.9-4.9); ALPHA-1-GLOBULINS 0.37 GM/DL (0.17-0.41); ALPHA-2-GLOBULINS 0.86 GM/DL (0.42-0.99); ALPHA-2-GLOBULINS % 17.2 % (7.1-11.8); BETA-1-GLOBULINS 0.36 GM/DL (0.28-0.60); BETA-1-GLOBULINS % 7.2 % (4.7-7.2); BETA-2-GLOBULINS 0.34 GM/DL (0.19-0.55); BETA-2-GLOBULINS % 6.7 % (3.2-6.5); GAMMA GLOBULIN % 7.1 % (11.1-18.8); GAMMA GLOBULINS 0.36 GM/DL (0.65-1.58)
[2018-07-17 16:00] VITALS: BP 158/72
[2018-07-17 19:00] VITALS: BP 160/84
[2018-07-17 20:00] VITALS: BP 152/96
[2018-07-17] MEDS ORDERED: DARBEPOETIN 100 MCG/0.5 ML *DIALYSIS* SYRINGE (J0882) IV SCH (21:45)
[2018-07-17] MEDS ORDERED: PILL CRUSHER/CUTTER 1 EACH XX PRN (21:45)
[2018-07-18 06:00] VITALS: BP 148/96
[2018-07-18] MEDS: HEPARIN SOD (PORCINE) 5000 UNITS/ML VIAL SC SCH ×3 (06:00→21:41)
[2018-07-18] MEDS: SLF 3 ML SYR IV SCH ×3 (06:10→22:00)
--- NOTE | 2018-07-18 07:34 | IPN ---
DATE OF SERVICE: 07/17/2018 SUBJECTIVE: Eduin is seen and examined this morning at the bedside. I had another lengthy discussion with Eduin and his mother regarding his proteinuria and renal failure. His 24 hour urine collection was very impressive at 21 grams of protein. He had a PermaCath placed this morning and is scheduled for his first hemodialysis treatment this afternoon. Given his age and his significant proteinuria, I discussed some possible diagnoses, including minimal change disease. He will need a kidney biopsy for definitive diagnosis and that is being set up for this week. He is anxious, but otherwise denies any complaints. Intake yesterday was 1800. Urine output yesterday was 2.1 liters. Weight on the bed scale today is not recorded. GENERAL: Patient is seen sitting out of bed to the chair. Young man, well built, in no distress. Extraocular muscles are intact. Sclerae are anicteric. Tongue is moist. Neck is supple. No jugular venous distention. He has a newly placed tunneled hemodialysis catheter in the right chest wall. CARDIAC: Regular rate and rhythm. No friction murmur. There is no edema in the extremities. LUNGS: Show improvement in the expiratory wheeze. No crackle, rale or rhonchus. There is no tachypnea. ABDOMEN: Soft. Nontender. There are bowel sounds. EXTREMITIES: Negative for edema, clubbing or cyanosis. SKIN: Normal turgor and temperature. No lesions or rashes. NEUROLOGIC: He is oriented times four, interactive, conversational, and no focal deficits. LABS: Sodium 143, potassium 4.1, bicarbonate 18, creatinine 6.6. PTH 136. LDL 132. 24 hour urine protein was 21 grams. Immunology and serology is pending. Chest x-ray on 07/17/2018: Clear lungs, sharp pleural angles. INPATIENT MEDICATIONS: I have increased his Lopressor to 37.5 mg by mouth twice a day. The amlodipine is held. He is going to start prednisone 60 mg by mouth daily with omeprazole 20 mg by mouth daily. Aranesp is also ordered. Remainder of medications are unchanged from prior. PROBLEMS: 1. Nonoliguric renal failure with nephrotic range proteinuria. 24 hour urine collection with 21 grams of protein. Possible etiology of renal failure in this young man with severe proteinuria includes minimal change disease. The autoimmune serologies are sent and pending. He had a PermaCath placement this morning. He is for his first hemodialysis treatment this afternoon. He will need a renal biopsy for definitive diagnosis and this is being set up. His renal ultrasound did show hyperechoic kidneys suggesting that the renal failure has been chronic. 2. Non anion gap metabolic acidosis secondary to renal failure and it will improve with hemodialysis initiation. 3. Nephrotic range proteinuria. Etiology not certain as of yet. Will follow the serologies and immunology studies. Pending the biopsy, possible minimal change disease. Will start the patient on oral prednisone 60 mg by mouth daily. His lipid panel was acceptable. I am not starting a statin at present. Given the significant proteinuria, there is a risk of hypercoagulability. After he has the kidney biopsy, we will start him on some appropriate anticoagulant. 4. Anemia of chronic kidney disease. Iron levels are acceptable. Aranesp is being ordered. 5. Hypertension with tachycardia. I have increased the dose of the beta ap. We will see how his blood pressure fares with dialysis initiation. 6. GI prophylaxis with steroid use. We will start him on omeprazole. 7. Secondary hyperparathyroidism of renal origin. His parathyroid hormone level is acceptable as is his phosphorus.
[2018-07-18 08:00] VITALS: BP 160/100
[2018-07-18 09:04] LABS: HEMATOCRIT 28.1 % (42.0-52.0); HEMOGLOBIN 9.5 g/dl (13.5-17.5); MEAN CORPUSCULAR HEMOGLOBIN 29.1 pg (27.0-33.0); MEAN CORPUSCULAR HGB CONC 33.8 g/dl (32.0-36.5); MEAN CORPUSCULAR VOLUME 86.2 fl (80.0-96.0); PLATELET COUNT, AUTOMATED 241 10^3/uL (150-450); RED BLOOD COUNT 3.26 10^6/uL (4.30-6.10); WHITE BLOOD COUNT 6.1 10^3/uL (4.0-10.0)
[2018-07-18] MEDS: OMEPRAZOLE 20 MG CAP PO SCH (09:08)
[2018-07-18] MEDS: predniSONE 20 MG TAB PO SCH (09:08)
[2018-07-18] MEDS: METOPROLOL TART 25 MG TABLET PO SCH ×2 (09:11→21:41)
[2018-07-18 09:23] LABS: CALCIUM LEVEL 8.1 MG/DL (8.5-10.1); CREATININE FOR GFR 5.36 MG/DL (0.70-1.30); GLOMERULAR FILTRATION RATE 13.1 (>60); POTASSIUM SERUM 3.2 MEQ/L (3.5-5.1)
[2018-07-18] MEDS: NIFEdipine 30 MG XL TAB PO SCH (10:48)
[2018-07-18 12:00] VITALS: BP 150/96
--- NOTE | 2018-07-18 15:22 | IPN ---
DATE: 07/18/2018 SUBJECTIVE: Patient seen and examined this morning at the bedside. Denies any overnight events or issues. He had his first dialysis treatment yesterday for two and a half hours with one liter of fluid removed which he tolerated without any problems. Blood pressure remains uncontrolled. Temperature 98.4, pulse 110, respiratory rate 18, blood pressure 160/100, saturating 94% on room air. Intake yesterday was 1140. Urine output yesterday was 2.9 liters. Dialysis yesterday removed 1 liter. Net negative 2.8 liters. Weight in the bed scale today is 112 kg. GENERAL: Patient is seen sitting up in bed, young man, well-built, in no distress. Extraocular muscles are intact. Sclerae are anicteric. Tongue is moist. Neck is supple. No jugular venous distention. Tunneled hemodialysis catheter present in right chest wall. CARDIAC: Regular rate and rhythm. No friction murmur. No edema in the extremities. Peripheral pulses are palpable. LUNGS: Show good air entry bilaterally. The expiratory wheeze has resolved. No crackle or rale. ABDOMEN: Belly is soft and nontender. There are bowel sounds. EXTREMITIES: Negative for edema, clubbing or cyanosis. SKIN: Normal turgor and temperature. NEUROLOGIC: No focal deficit, oriented times four. Power is 5/5 in all extremities. LABORATORY DATA: White count 6.1, hemoglobin 9.5. Sodium 141, potassium 3.2, bicarbonate. INPATIENT MEDICATIONS: Reviewed by myself. His metoprolol was increased to 37.5 mg by mouth twice daily and his amlodipine was discontinued and switched to Procardia XL 30 mg by mouth daily. Remainder of medications are unchanged from prior. PROBLEMS: 1. Nonoliguric renal failure with nephrotic range proteinuria, 21 grams of protein in 24-hour urine collection. Possible etiology in this young male with severe proteinuria includes minimal change disease. Autoimmune serologies are sent and pending. He had his first hemodialysis treatment yesterday. His next dialysis will be on Tuesday. Renal biopsy for definitive diagnosis is still being setup. His renal ultrasound did show hyperechoic kidneys suggesting that the renal failure has likely been chronic. 2. Nephrotic range proteinuria. Etiology not defined as of yet, pending serologies and immunology studies and kidney biopsy. Patient has empirically been started on oral prednisone 60 mg daily. We will start anticoagulation after he has had his kidney biopsy. 3. Non-anion gap metabolic acidosis, now resolved with hemodialysis initiation. 4. Hypertension with tachycardia. His Lopressor dose has been increased and I have discontinued the amlodipine and switched it to Procardia XL. 5. Gastrointestinal (GI) prophylaxis with steroid use. Continue omeprazole. 6. Anemia of chronic kidney disease. Continue with Aranesp. 7. Secondary hyperparathyroidism of renal origin. His calcium, phosphrus, and parathyroid hormone (PTH) levels are all acceptable.
[2018-07-18 16:00] VITALS: BP 156/98
--- NOTE | 2018-07-18 16:37 | IPNPDOC ---
Text Note Date of Service The patient was seen on 07/18/18. NOTE SUBJECTIVE: Patient was examined in his hospital room. He was seated on the edge of his bed eating breakfast. He denies any acute physical complaints. His cough and congestion continue to improve. No peripheral edema or fluid retention. No chest pain, difficulty breathing, n/v, abdominal pain, diarrhea or constipation. He has been eating and drinking. No difficulty with urination. PHYSICAL EXAMINATION: VITAL SIGNS:pls see below GENERAL APPEARANCE: Patient is alert and oriented, no acute distress, able to answer questions and participate in his care HEENT: No pallor or icterus no pharyngeal erythema or tonsillar exudates. no JVD, or cervical LAD CARDIOVASCULAR: Regular rate and rhythm without murmurs gallops or rubs LUNGS: Clear to auscultation bilaterally, without crackles, no wheezing rales or rhonchi CHEST: Portacath placement in R upper chest, clean and dry, drainage ABDOMEN: obese, soft, nontender, nondistended, normal bowel sounds throughout : No suprapubic tenderness, no CVA tenderness MUSCULOSKELETAL: Patient is able to move all extremities equally bilaterally, no weakness EXTREMITIES: No lower extremity edema, no calf tenderness, peripheral pulses 2+ via radial and DP, capillary refill <2 seconds LABORATORY DATA, IMAGING STUDIES: See below. IMAGING: Chest x-ray from [facility] (07/15/18): No focal consolidation Renal US (07/15/18): Hyperechoic renal cortices bilaterally consistent with a renal parenchymal disorder which correlate with renal function studies and clinical history. Chest x-ray (07/17/18): Negative CXR ASSESSMENT/PLAN: Nonoliguric Renal Failure 2/2 to unknown etiology - h/o recent sore throat, with persistent azotemia, proteinuria. r/o glomerular disease. - Nephrology consulted and we will follow their recommendations - Complement C3/C4 WNL - ASIF, ANCA, Glomerular basement membrane IgG pending. - Cryoglobulin negative, alpha, beta and gamma globulins pending, Syphilis nonreactive, Hep Bs only positive, Hep C negative. - Portacath placed yesterday morning with HD yesterday afternoon, 1 liter of fluid removed. - Renal biopsy planned for later this week to confirm etiology. - Patient started on prednisone 60 mg daily for suspected minimal change disease. - Omeprazole for GI prophylaxis given current steroid dosage. Essential hypertension - Metoprolol 37.5 mg daily - d/c amlodipine - Start Procardia XL per nephrology - Avoid KALPANA and diuretics - No IV fluids at this time - 1800 mL fluid restriction Non-anion gap metabolic acidosis - Anticipate improvement with HD URI - Patient reports improvement in his symptoms - Continue with Cepacol lozenges as needed Secondary Hyperparathyroidism -likely 2/2 to chronic renal disease - Calcium 7.8, Phos 4.7 - PTH levels are acceptable Obesity BMI 37 - Complicating care Anemia -2/2 to chronic disease - c/w Aranesp DVT prophylaxis: -Heparin SQ -Sequential's Disposition: Consider D/C at week's end VS,Fishbone, I+O VS, Fishbone, I+O Laboratory Tests 07/18/18 08:33 Red Blood Count 3.26 L, Mean Corpuscular Volume 86.2, Mean Corpuscular Hemoglobin 29.1, Mean Corpuscular Hemoglobin Concent 33.8, Red Cell Distribution Width 12.2, Calcium Level 8.1 L Vital Signs Date Time Temp Pulse Resp B/P (MAP) Pulse Ox O2 Delivery O2 Flow Rate FiO2 07/18/18 12:00 97.4 84 18 150/96 (114) 94 07/15/18 17:30 Room Air I&O- Last 24 Hours up to 6 AM 07/18/18 06:00 Intake Total 1200 ml Output Total 3775 ml Balance -2575 ml GME ATTESTATION GME ATTESTATION My faculty preceptor for this patient encounter was physically present during the encounter and was fully available. All aspects of the patient interview, examination, medical decision making process, and medical care plan development were reviewed and approved by the faculty preceptor. The faculty preceptor is aware and concurs with the plan as stated in the body of this note and will attest to such by his/her cosignature. SHAD LIRA DO Jul 18, 2018 16:37
[2018-07-18 20:00] VITALS: BP 150/72
[2018-07-18] MEDS ORDERED: POTASSIUM CHLORIDE 10 MEQ SR TABLET PO ONE (20:00)
[2018-07-19] VITALS: BP 150/72
[2018-07-19 04:00] VITALS: BP 120/70
[2018-07-19] MEDS: SLF 3 ML SYR IV SCH ×3 (06:00→20:47)
[2018-07-19] MEDS: OMEPRAZOLE 20 MG CAP PO SCH (06:06)
[2018-07-19] MEDS: NIFEdipine 30 MG XL TAB PO SCH (06:06)
[2018-07-19] MEDS: HEPARIN SOD (PORCINE) 5000 UNITS/ML VIAL SC SCH ×3 (06:06→20:47)
[2018-07-19] MEDS: predniSONE 20 MG TAB PO SCH (06:07)
[2018-07-19 06:48] LABS: HEMOGLOBIN 9.9 g/dl (13.5-17.5); MEAN CORPUSCULAR HEMOGLOBIN 29.4 pg (27.0-33.0); MEAN CORPUSCULAR HGB CONC 34.1 g/dl (32.0-36.5); MEAN CORPUSCULAR VOLUME 86.1 fl (80.0-96.0); PLATELET COUNT, AUTOMATED 275 10^3/uL (150-450); RED BLOOD COUNT 3.37 10^6/uL (4.30-6.10); WHITE BLOOD COUNT 10.2 10^3/uL (4.0-10.0)
[2018-07-19 07:06] LABS: CALCIUM LEVEL 8.1 MG/DL (8.5-10.1); CREATININE FOR GFR 6.31 MG/DL (0.70-1.30); GLOMERULAR FILTRATION RATE 10.9 (>60); MAGNESIUM LEVEL 2.7 MG/DL (1.8-2.4); POTASSIUM SERUM 3.6 MEQ/L (3.5-5.1)
[2018-07-19] MEDS ORDERED: METOPROLOL TART 25 MG TABLET PO SCH (09:00)
[2018-07-19 11:30] VITALS: BP 140/93
[2018-07-19] MEDS: METOPROLOL TART 12.5 MG PER 1/2 TAB PO SCH ×2 (11:30→20:47)
[2018-07-19] MEDS ORDERED: HEPARIN 1,000 UNITS/ML 10ML VIAL (FOR RADIOLOGY& DIALYSIS ONLY) XX ONE (11:30)
[2018-07-19] MEDS ORDERED: HEPARIN 1,000 UNITS/ML 10ML VIAL (FOR RADIOLOGY& DIALYSIS ONLY) IV ONE (11:30)
[2018-07-19 14:17] VITALS: BP 138/88
[2018-07-19] MEDS: ALBUTEROL SULFATE 2.5 MG/0.5 ML INH NEB SOLN NEB PRN ×2 (14:50→21:11)
--- NOTE | 2018-07-19 17:09 | IPN ---
DATE: 07/19/2018 SUBJECTIVE: Patient seen and examined this morning in the hemodialysis unit receiving his second dialysis treatment, which he is tolerating without any issues. He is scheduled for a kidney biopsy in the afternoon tomorrow. He denies any shortness of breath, chest pain, or edema. His blood pressure control is improving. VITAL SIGNS: Temperature 99.0, pulse 102, respiratory rate 18, blood pressure 138/88, saturating 93-95% on room air. Intake yesterday was not fully recorded. Urine output yesterday was 700. Weight in the bed scale today is 110 kg. GENERAL: Patient is seen in dialysis receiving his treatment, awake, alert, oriented, comfortable. No acute distress. Extraocular muscles are intact. Tongue is moist. Neck is supple. Sclerae anicteric. Tunneled hemodialysis catheter present in the right chest wall presently in use. CARDIAC: S1, S2, regular rate and rhythm. LUNGS: Clear to auscultation bilaterally. No crackle, rale, or rhonchus. ABDOMEN: Soft and nontender. There are bowel sounds. EXTREMITIES: Negative for edema, clubbing, or cyanosis. NEUROLOGIC: He is intact. No focal deficits. LABORATORY DATA: White count 10.2, hemoglobin 9.9, platelets 275. Sodium 141, potassium 3.6, magnesium 2.7. INPATIENT MEDICATIONS: Reviewed by myself and no change from prior. PROBLEMS: 1. Non-oliguric renal failure with nephrotic-range proteuria. Etiology uncertain. Protein 21 grams in 24-hour urine collection. Kidney biopsy is scheduled for tomorrow afternoon. Possible etiologies in this young male with severe proteinuria including minimal change disease, autoimmune serologies have still not resulted and are pending. His urinalysis was negative for blood. He is status post second hemodialysis treatment. He is being set up for outpatient hemodialysis arrangement. His renal ultrasound did show hyperechoic kidneys, suggesting that renal failure has likely had some degree of chronicity. 2. Nephrotic-range proteinuria. Etiology not defined as of yet. Kidney biopsy is scheduled for tomorrow. Will followup the remainder immunologic/serologic studies. He has been empirically started on oral prednisone 60 mg by mouth daily. If his proteinuria dues not improve, we will plan to start anticoagulation after the kidney biopsy. 3. Hypertension with tachycardia. Continue Lopressor 37 mg by mouth twice a day and continue Procardia XL. Further titration as needed. His blood pressure needs to be controlled, especially given plan for kidney biopsy tomorrow. 4. Gastrointestinal (GI) prophylaxis with steroid use Continue omeprazole. 5. Anemia of chronic kidney disease. Continue with Aranesp.
[2018-07-19 18:00] VITALS: BP 142/88
[2018-07-19 20:00] VITALS: BP 148/88
[2018-07-20] VITALS (10 sets, daily range): BP systolic 134–160; BP diastolic 70–98
[2018-07-20 00:09] LABS: ANCA-ATYPICAL <1:20 titer (Neg:<1:20); ANTI DOUBLE STRAND-DNA AB <1 IU/mL (0-9); ANTINUCLEAR ANTIBODIES DIRECT Negative (Negative); CYTOPLASMIC NEUTROP AB ANCA-C <1:20 titer (Neg:<1:20); PERINUCLEAR AB ANCA-P <1:20 titer (Neg:<1:20)
[2018-07-20] MEDS: HEPARIN SOD (PORCINE) 5000 UNITS/ML VIAL SC SCH ×2 (02:33→14:00)
[2018-07-20] MEDS: SLF 3 ML SYR IV SCH ×3 (04:18→20:59)
[2018-07-20 06:48] LABS: HEMATOCRIT 27.3 % (42.0-52.0); HEMOGLOBIN 9.5 g/dl (13.5-17.5); MEAN CORPUSCULAR HEMOGLOBIN 29.2 pg (27.0-33.0); MEAN CORPUSCULAR HGB CONC 34.8 g/dl (32.0-36.5); PLATELET COUNT, AUTOMATED 261 10^3/uL (150-450); RED BLOOD COUNT 3.25 10^6/uL (4.30-6.10); WHITE BLOOD COUNT 11.8 10^3/uL (4.0-10.0)
[2018-07-20 07:08] LABS: CREATININE FOR GFR 5.39 MG/DL (0.70-1.30); MAGNESIUM LEVEL 2.4 MG/DL (1.8-2.4); POTASSIUM SERUM 3.1 MEQ/L (3.5-5.1)
[2018-07-20] MEDS ORDERED: POTASSIUM CHLORIDE 10 MEQ SR TABLET PO ONE (09:00)
[2018-07-20] MEDS: OMEPRAZOLE 20 MG CAP PO SCH (09:14)
[2018-07-20] MEDS: METOPROLOL TART 12.5 MG PER 1/2 TAB PO SCH ×2 (09:14→20:59)
[2018-07-20] MEDS: predniSONE 20 MG TAB PO SCH (09:14)
[2018-07-20] MEDS: NIFEdipine 30 MG XL TAB PO SCH (09:15)
--- NOTE | 2018-07-20 10:02 | IPNPDOC ---
Text Note Date of Service The patient was seen on 07/20/18. NOTE SUBJECTIVE: Patient was interviewed and examined in his hospital room. He appears to be doing well, and in no acute distress. He shares that his "chest cold" has improved since his admission. He continues to cough sporadically but it is much less productive. Hemodialysis performed yesterday. He is scheduled for a renal biopsy later today. Continue to follow nephrology's recommendations for his medical management. He denies any chest pain or tightness. Continues to report cough but denies wheezing or shortness of breath. No abdominal pain. No difficulty stooling or urinating. Patient has been eating and drinking appropriately. No pain, discomfort or other acute complaints. Patient's blood pressure remains slightly elevated this morning at 140/88, 6 prior to his receiving his pressure medication. OBJECTIVE: VITALS: Please see below. EXAM: Gen.: Patient is awake alert sitting upright in bed and ambulate around the room, in no acute distress, able to participate in his care Head: Normocephalic atraumatic EENT: EOMI, sclera nonicteric, mucous membranes are moist Neck: No JVD, trachea midline Cardiac: Regular rate and rhythm, normal S1 and S2, no murmurs Lungs: Good air movement, some end inspiratory wheezing in the lower lung bases bilaterally, otherwise clear to auscultation bilaterally Abdomen: Soft, nontender, nondistended Skin: Hemodialysis catheter noted in right upper chest. Nonjaundiced, no new/evolving lesions, no cyanosis Extremities: Able to move all extremities equally and bilaterally. Lower extremity swelling or calf tenderness Psych: Mood and affect are appropriate LABS: Please see below. IMAGING: Chest x-ray from [facility] (07/15/18): No focal consolidation Renal US (07/15/18): Hyperechoic renal cortices bilaterally consistent with a renal parenchymal disorder which correlate with renal function studies and clinical history. Chest x-ray (07/17/18): Negative CXR MICROBIOLOGY: Sputum culture (07/15/18): Few WBCs, few gram-positive cocci in chains, few gram- positive rods PATHOLOGY: Urine (07/17/18): Urine positive for scattered eosinophils ASSESSMENT: Patient is a 33-year-old gentleman who presented to emergency department for cold-like symptoms. On workup, he was found to be an acute kidney failure. Patient was admitted for further workup and management. He had a permacath placed and has received 2 sessions of hemodialysis. Renal biopsy scheduled for later today. Currently being treated with 60 mg of prednisone daily. PLAN: Nonoliguric renal failure Kidney biopsy scheduled for this afternoon for definitive diagnoses. Minimal change disease high on differential. Serologies remain pending Renal ultrasound shows hyperechoic kidneys, suggesting a degree of chronicity to his disease process Patient had hemodialysis yesterday Prednisone 60 mg daily with GI prophylaxis Continue to follow nephrology recommendations Nephrotic range proteinuria Undetermined etiology, pending biopsy later this afternoon Continue to follow pending serologic/immune studies Hypertension with tachycardia Metoprolol 37 mg BID and Nifedipine 30 mg daily per Nephrology, avoidance of KALPANA-i and Diuretics Patients BP remained elevated this morning at 140/88 mmHg prior to receiving his medication. Will monitor throughout the day. Pressure control remains a top priority GI prophylaxis Patient is on 60 mg prednisone daily Continue with omeprazole Anemia of chronic kidney disease Continue with Aranesp Hypokalemia Potassium of 3.1 this morning Oral supplementation with 40 Carly given DVT prophylaxis: Subcutaneous heparin, TEDs VS,Fishbone, I+O VS, Fishbone, I+O Laboratory Tests 07/20/18 06:36 Red Blood Count 3.25 L, Mean Corpuscular Volume 84.0, Mean Corpuscular Hemoglobin 29.2, Mean Corpuscular Hemoglobin Concent 34.8, Red Cell Distribution Width 12.2, Calcium Level 8.0 L Vital Signs Date Time Temp Pulse Resp B/P (MAP) Pulse Ox O2 Delivery O2 Flow Rate FiO2 07/20/18 04:00 97.5 86 18 140/88 (105) 95 07/15/18 17:30 Room Air I&O- Last 24 Hours up to 6 AM 07/20/18 06:00 Intake Total 660 ml Output Total 2500 ml Balance -1840 ml GME ATTESTATION GME ATTESTATION My faculty preceptor for this patient encounter was physically present during the encounter and was fully available. All aspects of the patient interview, examination, medical decision making process, and medical care plan development were reviewed and approved by the faculty preceptor. The faculty preceptor is aware and concurs with the plan as stated in the body of this note and will attest to such by his/her cosignature. SHAD LIRA DO Jul 20, 2018 10:02 JD PHILLIPS DO Aug 02, 2018 07:50
[2018-07-20] MEDS ORDERED: LIDOCAINE 1% MDV 20ML VIAL As Ordered ONE (12:12)
--- NOTE | 2018-07-20 21:09 | IPN ---
DATE OF VISIT: 07/19/2018 SUBJECTIVE: The patient is seen and examined in the room today. The patient denies any acute complaints at present. No fever, no chills. The patient has good oral intake and denies palpitations, chest pain or shortness of breath. OBJECTIVE: VITAL SIGNS: Temperature 98.1, pulse 86, respirations 18, blood pressure 120/70, pulse ox 94% on room air. GENERAL: The patient is alert and awake, no acute distress. HEENT: Normocephalic atraumatic. Extraocular muscles grossly intact. CARDIOVASCULAR: Tachycardic, positive S1, S2. Regular rate. LUNGS: Clear to auscultation bilaterally. ABDOMEN: Soft, nontender, bowel sounds present. EXTREMITIES: No edema. LABORATORY DATA: WBC 10.3, hemoglobin 9.9, hematocrit 29, platelet count 275. Sodium 141, potassium 3.6, chloride 111, carbon dioxide 22, BUN 43, creatinine 6.31, GFR is 10.9, fasting glucose 110, calcium 8.1, magnesium 2.7. ASSESSMENT: 1. Renal failure. Urinalysis, suspect nephrotic syndrome. Kidney biopsy scheduled for tomorrow. The patient is on hemodialysis. Dialysis right front chest. Nephrology consult. 2. Hypertension versus tachycardia. On Lopressor. The patient is also on Procardia. 3. Deep venous thrombosis prophylaxis (DVT). On heparin.
[2018-07-21] VITALS: BP 144/96
[2018-07-21 04:00] VITALS: BP 148/96
[2018-07-21] MEDS: SLF 3 ML SYR IV SCH (06:00)
[2018-07-21 06:25] LABS: HEMATOCRIT 29.2 % (42.0-52.0); MEAN CORPUSCULAR HEMOGLOBIN 29.7 pg (27.0-33.0); MEAN CORPUSCULAR HGB CONC 34.2 g/dl (32.0-36.5); MEAN CORPUSCULAR VOLUME 86.6 fl (80.0-96.0); PLATELET COUNT, AUTOMATED 284 10^3/uL (150-450); RED BLOOD COUNT 3.37 10^6/uL (4.30-6.10); WHITE BLOOD COUNT 16.9 10^3/uL (4.0-10.0)
[2018-07-21 06:45] LABS: CALCIUM LEVEL 8.1 MG/DL (8.5-10.1); CREATININE FOR GFR 5.99 MG/DL (0.70-1.30); GLOMERULAR FILTRATION RATE 11.5 (>60); MAGNESIUM LEVEL 2.6 MG/DL (1.8-2.4); POTASSIUM SERUM 3.2 MEQ/L (3.5-5.1)
--- NOTE | 2018-07-21 07:49 | IPN ---
DATE OF SERVICE: 07/20/2018 SUBJECTIVE: Patient seen and examined this morning at the bedside. His mother is present. He is scheduled for kidney biopsy this afternoon and we discussed what the procedure will entail. He tolerated his second hemodialysis treatment without issues and he is being set up for outpatient hemodialysis. VITAL SIGNS: Temperature 98.6, pulse 89, respiratory rate 17, blood pressure 143/85, saturating 995% on room air. Intake yesterday was 960. Urine output yesterday was 2 liters. Dialysis yesterday removed 1 liter. Net negative 2 liters. Weight in the bed scale today is 108.6 kg, which is decreased from prior. GENERAL: Patient seen sitting in bed. Young male, well built, in no acute distress. Extraocular muscles are intact. Tongue is moist. Neck is supple. Sclerae anicteric. Tunneled hemodialysis catheter right chest wall. CARDIAC: S1, S2, regular rate and rhythm. LUNGS: Clear to auscultation bilaterally. No crackle, rale, or rhonchus. ABDOMEN: Soft and nontender. There are bowel sounds. EXTREMITIES: Negative for edema, clubbing, or cyanosis. NEUROLOGIC: He is intact. No focal deficit. Oriented times four. LABORATORY DATA: White count 11.8, hemoglobin 9.5, platelets 261. Sodium 141, potassium 3.1, magnesium 2.4. INPATIENT MEDICATIONS: Reviewed by myself. His heparin subcutaneous is on hold in view of kidney biopsy later today. His remainder of medications are unchanged from prior. He did receive a dose of oral potassium chloride. PROBLEMS: 1. Non-oliguric renal failure in this patient with nephrotic-range proteuria. Kidney biopsy to be performed this afternoon. His serologic and immunologic workup thus far has returned back negative, including cryoglobulins, ASIF, ANCA, dsDNA, complements, hepatitis serologies. The anti-GBM is pending. His urinalysis was negative for blood. Given the significant amount of proteinuria, likely to have some sort of nephrotic syndrome such as minimal change. He will followup closely in the outpatient setting to review the results of the kidney biopsy. 2. Nephrotic-range proteinuria. Etiology not defined as of yet. Kidney biopsy to be done. Serologic/immunologic work up thus far is negative. He has been empirically started on oral prednisone 60 mg by mouth daily. If his proteinuria does not improve in the outpatient setting, we will start him on some anticoagulation. He is receiving GI prophylaxis with the steroids. 3. Hypertension with tachycardia. Continue Lopressor and Procardia XL. 4. Anemia of chronic kidney disease. Continue with Aranesp. Hemoglobin is stable, but suboptimal at 9.5. 5. Disposition. The patient is being set up for outpatient hemodialysis arrangement. Once that is in place, he can likely be discharged, probably within the coming 24 hours.
[2018-07-21 08:00] VITALS: BP 143/92
[2018-07-21] MEDS ORDERED: POTASSIUM CHLORIDE 10 MEQ SR TABLET PO ONE (08:00)
[2018-07-21] MEDS: METOPROLOL TART 12.5 MG PER 1/2 TAB PO SCH (08:54)
[2018-07-21] MEDS: OMEPRAZOLE 20 MG CAP PO SCH (08:54)
[2018-07-21 08:55] VITALS: BP 143/92
[2018-07-21] MEDS: predniSONE 20 MG TAB PO SCH (08:55)
[2018-07-21] MEDS: NIFEdipine 30 MG XL TAB PO SCH (08:55)
[2018-07-21] MEDS ORDERED: NIFE30TA7 PO (09:31)
[2018-07-21] MEDS ORDERED: METO1TAB87 PO (09:31)
[2018-07-21] MEDS ORDERED: OMEP20CA3 PO (09:31)
[2018-07-21] MEDS ORDERED: PRED20TA PO (09:31)
--- NOTE | 2018-07-21 09:31 | RO ---
DATE OF PROCEDURE: 07/20/2018 PROCEDURE: Ultrasound guided left renal biopsy. INDICATION FOR PROCEDURE: Nephrotic range proteinuria and renal failure requiring dialysis. PERFORMING PHYSICIAN: Dr. Magdiel Vazquez PREPROCEDURE DIAGNOSIS: Renal failure and proteinuria. POSTPROCEDURE DIAGNOSIS: Echogenic kidney. Three biopsy specimens were obtained. ANESTHESIA: 1% lidocaine local anesthesia was used. CONSENT: Informed and written consent was obtained from the patient and it was placed on the chart. PROCEDURE: The patient was laying down on the table in prone position comfortably. The procedure had already been explained to him. Both kidneys were visualized with ultrasound. The left kidney was marked for renal biopsy. The patient was prepped and draped in sterile fashion. Proper infection control precautions were taken. 12 mL of 1% lidocaine was injected, initially with a 25-gauge needle, later on with a longer spinal needle. When the area was numb, a 17-gauge introducer needle was introduced under ultrasound guidance all the way to the renal capsule and through the introducer needle an 18-gauge kidney biopsy needle was inserted. A total of three passes were made and three core biopsy kidney specimens were obtained. The specimens were sent to the pathology department for further process. A post procedure kidney ultrasound was done. No hematoma was noted. COMPLICATIONS: None. BLOOD LOSS: None. POST BIOPSY ORDERS: The patient will have complete bed rest for 4 hours. Vitals every 15 minutes for 2 hours and then every 30 minutes for the next 2 hours. Okay to take renal diet. Bedside commode privileges. MD to be called for systolic blood pressure less than 100 or for hematuria. The patient can go back to his room.
--- NOTE | 2018-07-21 14:59 | DS.PDOC ---
Discharge Summary General Date of Admission Jul 15, 2018 at 18:12 Date of Discharge Jul 21, 2018 Primary Care Physician: SHAD LIRA DO Attending Physician: JD PHILLIPS DO Specialist/Consultants [facility] Ne[facility] Discharge Summary PROCEDURES PERFORMED DURING STAY: Renal Biopsy 07/20/18 ADMITTING DIAGNOSES: 1. Acute renal failure 2. Essential hypertension 3. URI DISCHARGE DIAGNOSES: 1. Acute renal failure 2. Essential hypertension 3. URI COMPLICATIONS/CHIEF COMPLAINT: Acute Kidney Failure. HISTORY OF PRESENT ILLNESS: Patient is a 33-year-old white male with a past medical history significant for hypertension, exerciseinduced asthma and migraine headache who presents to the emergency department today from [facility] with with cold-like symptoms for the past 2 days. Patient was found to have abnormal renal labs and was scheduled to be transferred to [facility] for acute renal failure. Patient signed out AMA and presented to [facility] emergency department for further management and evaluation. Patient initially presented to [facility] ER complaining of 3 day history of nonproductive cough, wheezing and bilateral chest pain on inspiration. Patient was afebrile, respiration rate of 18, 98% O2 saturation on room air. Initial blood pressure reading of 161/91. He shares that his 5-year-old daughter had been sick about a week ago. Patient has a history of asthma and utilizes an inhaler as needed. He reports that his inhaler did not relieve his symptoms, which prompted his presentation. He reports that 3 days ago he took 2x 100 mg amoxicillin pills prescribed to his dog. Yesterday, patient took a single pill of 100 mg amoxicillin. Patient denies any other recent medication use, including NSAIDs. He denies any adverse side effects. He denies recent diarrhea, vomiting or dehydration. No history of urinary retention or obstruction. In [facility] emergency department patient was given a 10 mg IVP of dexamethasone which caused a flushing rash. Patient was subsequently given Benadryl 12.5 IVP with complete resolution. He also received a DuoNeb and Xopenex treatment and normal saline. Chest x-ray was performed and indicated no focal consolidation. A UA indicated 3+ protein 500 urine glucose 2+ blood. Strep negative. CBC demonstrated an H/H of 10.2/29.1, no leukocytosis. CMP showed BUN of 36 and a creatinine of 6.3. Previous CMP obtained in 02/07 indicated a BUN of 14 and a creatinine of 1.1. Patient elected to sign out AMA and presented to [facility] in lieu of being transferred to [facility]. Upon presentation to [facility], patient was given an IV bolus of normal saline. Repeat CBC and CMP relatively unchanged from prior studies at [facility]. Toxicology screen negative. Influenza negative. UA demonstrating 3+ protein and 3+ glucose. Hospitalist team was called to admit for further evaluation and management of the patient. HOSPITAL COURSE: Patient received immediate consultation from nephrology who recommended dialysis. Patient was started on 5 mg of amlodipine daily as he was previously prescribed this medication by his primary care provider with good effect. A renal ultrasound was ordered and demonstrated hyperechoic kidneys suggesting some degree of chronicity to his disease process. On 07/17, a tunneled hemodialysis catheter was placed by Dr. Graves. Later that day, the patient underwent hemodialysis and maintained on a renal diet with 1800 mL fluid restriction. Patient was noted to have anemia of chronic disease and st arted on Aranesp. Nephrology also started the patient on metoprolol 25 mg due to his tachycardia. A 24 hour urine collection to measure 20 mg of protein. Differential for nephrotic range proteinuria included minimal change disease. Patient was empirically started on prednisone 60 mg by mouth daily. He was also started on omeprazole for GI prophylaxis given his concomitant steroid use. Additionally, his metoprolol was increased to 37.5 mg twice a day and his amlodipine was held. On 07/19, patient received his second hemodialysis. Was continued on Lopressor 37 mg by mouth twice daily and Procardia XL. On 07/20, patient was set up for outpatient dialysis. Serologic and immunologic workup returned negative. Biopsy of his left kidney was performed without issue. Blood pressures remained 140/90 for much of the evening. On 07/21, patient was cleared for discharge with close follow-up by nephrology and primary care for management of his ongoing conditions. DISCHARGE MEDICATIONS: Please see below. ALLERGIES: Please see below. PHYSICAL EXAMINATION ON DISCHARGE: VITAL SIGNS: Please see below. Gen.: Patient is awake alert sitting upright in bed and ambulate around the room, in no acute distress, able to participate in his care Head: Normocephalic atraumatic EENT: EOMI, sclera nonicteric, mucous membranes are moist Neck: No JVD, trachea midline Cardiac: Regular rate and rhythm, normal S1 and S2, no murmurs Lungs: Good air movement, some end inspiratory wheezing in the lower lung bases bilaterally, otherwise clear to auscultation bilaterally Abdomen: Soft, nontender, nondistended Skin: Hemodialysis catheter noted in right upper chest. Nonjaundiced, no new/evolving lesions, no cyanosis Extremities: Able to move all extremities equally and bilaterally. Lower extremity swelling or calf tenderness Psych: Mood and affect are appropriate LABORATORY DATA: Please see below. IMAGING: Chest x-ray from [facility] (07/15/18): No focal consolidation Renal US (07/15/18): Hyperechoic renal cortices bilaterally consistent with a renal parenchymal disorder which correlate with renal function studies and clinical history. Chest x-ray (07/17/18): Negative CXR ACTIVITY: As tolerated DIET: As tolerated DISPOSITION: Home, Self-Care DISCHARGE INSTRUCTIONS: 1. Please keep outpatient hemodialysis appointment this afternoon 2. Please continue with her prescribed medications 3. Is negative follow-up appointment with nephrology and primary care provider in the coming week 4. Please return to the emergency department if you experience any alarming symptoms. DISCHARGE CONDITION: Stable. TIME SPENT ON DISCHARGE: Greater than 35 minutes. Vital Signs/I&Os Vital Signs Date Time Temp Pulse Resp B/P (MAP) Pulse Ox O2 Delivery O2 Flow Rate FiO2 07/21/18 08:55 143/92 07/21/18 08:54 80 07/21/18 08:00 98.4 15 95 07/15/18 17:30 Room Air I&O- Last 24 Hours up to 6 AM 07/21/18 06:00 Intake Total 1320 ml Output Total 1 ml Balance 1319 ml Laboratory Data Labs 24H Laboratory Tests 2 07/21/18 06:07: Nucleated Red Blood Cells % (auto) 0.2H, Anion Gap 14, Glomerular Filtration Rate 11.5L, Blood Urea Nitrogen 49H, Creatinine 5.99H, Sodium Level 141, Potassium Level 3.2L, Chloride Level 107, Carbon Dioxide Level 20L, Calcium Level 8.1L, Magnesium Level 2.6H CBC/BMP Laboratory Tests 07/21/18 06:07 Red Blood Count 3.37 L, Mean Corpuscular Volume 86.6, Mean Corpuscular Hemoglobin 29.7, Mean Corpuscular Hemoglobin Concent 34.2, Red Cell Distribution Width 12.3, Calcium Level 8.1 L Microbiology Microbiology 07/17/18 Gram Stain - Final, Complete 07/17/18 Sputum Culture - Final, Complete Discharge Medications Scheduled Metoprolol Tartrate (Metoprolol Tartrate) 25 Mg Tab, 37.5 MG PO BID Nifedipine (Nifedipine ER) 30 Mg Tab, 30 MG PO DAILY Omeprazole (Omeprazole) 20 Mg Cap, 20 MG PO DAILY Prednisone (Prednisone) 20 Mg Tab, 60 MG PO DAILY Scheduled PRN Albuterol Sulfate (Ventolin Hfa) 108 Mcg/Act Aer, 90 MCG IN PRN PRN for SHORTNESS OF BREATH, (Reported) Allergies Coded Allergies: Penicillins (Verified Allergy, Unknown, 07/19/18) clarithromycin (Verified Allergy, Unknown, 07/19/18) dexamethasone (Verified Allergy, Unknown, 07/19/18) GME ATTESTATION GME ATTESTATION My faculty preceptor for this patient encounter was physically present during the encounter and was fully available. All aspects of the patient interview, examination, medical decision making process, and medical care plan development were reviewed and approved by the faculty preceptor. The faculty preceptor is aware and concurs with the plan as stated in the body of this note and will attest to such by his/her cosignature. SHAD LIRA DO Jul 21, 2018 14:22
--- NOTE | 2018-07-26 12:32 | REPIR ---
DATE OF PROCEDURE: 07/17/2018 PREOPERATIVE DIAGNOSIS: Acute renal failure. POSTOPERATIVE DIAGNOSIS: Acute renal failure. PROCEDURE: Ultrasound-guided right internal jugular vein cannulation, fluoroscopic guided right internal jugular vein 19 cm tipped cuff, [employer] tunneled central venous catheter placement. ATTENDING SURGEON: Dr. Liam Graves FOREIGN EXCHANGE STUDENT COORDINATOR: Estrella Harris ANESTHESIA: Local with 20 mL of 2% lidocaine. FLUORO TIME: 0.1 minutes. CONTRAST: None. COMPLICATIONS: None. DRAINS: None. SPECIMENS: None. IMPLANTS: Right internal jugular vein 19 cm tipped cuff, [employer] tunneled central venous catheter. INDICATION: The patient is a 33-year-old male with acute renal failure who requires access for hemodialysis. The patient will undergo placement of a tunneled central venous catheter. Risks, benefits and alternative treatment options were discussed with the patient. Anesthesia was local with 20 mL of 2% lidocaine for 0.1 minutes. DESCRIPTION OF PROCEDURE: The patient was taken to the angiography suite, placed supine on the angiography room table. Ultrasound was used to guide cannulation of the right internal jugular vein. Fluoroscopy was used to guide dilatation of the vein. The catheter was tunnel, advanced through the introducer sheath and positioned with the tip in the superior. Final fluoroscopic image showed the catheter being good position and good alignment with no pneumothorax or hemothorax noted. Catheter is stable for use for hemodialysis access.
--- NOTE | 2018-07-28 09:17 | REP ---
Left renal sonography: Limited. Findings: Sonographic guidance is provided Dr. Altman who performed a ultrasound-guided needle biopsy procedure of the left kidney. Electronically Signed by Pedro Espana MD 07/28/2018 09:08 A
== END 2018-07-21 10:10 | disposition home or self-care (01) | DRG 469 ==
LOC: M ED 16:43 → M ED INP 18:12 → M PED 20:35 → M MS4PR 07-17 18:45
PROVIDERS: ADMIT Internal Medicine; ATTEND Internal Medicine
PROC: 5A1D70Z Performance of Urinary Filtration, Intermittent, Less than 6 Hours Per Day (ICD-10-PCS; principal; 2018-07-17)
PROC: 02HV33Z Insertion of Infusion Device into Superior Vena Cava, Percutaneous Approach (ICD-10-PCS; 2018-07-17)
PROC: 0TB13ZX Excision of Left Kidney, Percutaneous Approach, Diagnostic (ICD-10-PCS; 2018-07-20)
DX: N17.9 Acute kidney failure, unspecified (principal); E87.2 Acidosis; I12.9 Hypertensive chronic kidney disease with stage 1 through stage 4 chronic kidney disease, or unspecified chronic kidney disease; J45.909 Unspecified asthma, uncomplicated; J06.9 Acute upper respiratory infection, unspecified; G43.909 Migraine, unspecified, not intractable, without status migrainosus; N18.9 Chronic kidney disease, unspecified; D63.1 Anemia in chronic kidney disease; N25.81 Secondary hyperparathyroidism of renal origin; N04.2 Nephrotic syndrome with diffuse membranous glomerulonephritis; E66.9 Obesity, unspecified; Z68.37 Body mass index [BMI] 37.0-37.9, adult; Z87.891 Personal history of nicotine dependence; Z88.0 Allergy status to penicillin; Z88.1 Allergy status to other antibiotic agents; Z88.8 Allergy status to other drugs, medicaments and biological substances

== ENCOUNTER → 2018-07-27 | Outpatient (CLI) | payer BC ==
[~2018-07-27] MED LIST: BUPIVACAINE HCL 0.5% 10 ML VIAL As Ordered ONE; HEPARIN 1,000 UNITS/ML 10ML VIAL (FOR RADIOLOGY& DIALYSIS ONLY) As Ordered ONE; ISOVUE-300 61% 100ML VIAL (Q9967) As Ordered ONE; LIDOCAINE 2% MDV 20 ML VIAL As Ordered ONE; METO1TAB87 PO; MIDAZOLAM INJ 2 MG/2 ML VIAL (J2250) As Ordered ONE; NIFE30TA7 PO; OMEP20CA3 PO; PRED20TA PO; VENTAER IN; fentaNYL 100 MCG/2 ML INJECTION (J3010) As Ordered ONE
--- NOTE | 2018-08-30 11:39 | REPIR ---
DATE OF PROCEDURE: 07/27/2018 ATTENDING SURGEON: Dr. Liam Graves LICENSE REGISTRATION EXAMINER: None. PREOPERATIVE DIAGNOSIS: Acute renal failure, right internal jugular PermCath. POSTOPERATIVE DIAGNOSIS: Acute renal failure, right internal jugular PermCath. PROCEDURE: Right internal jugular PermCath removal. INDICATION: The patient no longer requires PermCath and will undergo removal. ANESTHESIA: None. COMPLICATIONS: None. DRAINS: None. SPECIMENS. None. IMPLANTS: None. DESCRIPTION OF PROCEDURE: The patient was prepped and draped in a standard surgical fashion. The sutures holding the PermCath in place were removed. Manual traction was applied to the PermCath, which spontaneously released the subcutaneous cuff. Manual compression was applied. Dressings were then applied. The patient tolerated the procedure well. All instrument, sponge and needle counts were correct at the end the case. There were no complications. Dr. Graves was present for and directed the entire case. edited: 09/12/2018 1532 tkf MTDD
== END ==
LOC: M IRPRO 09:57
PROVIDERS: ATTEND Surgery Vascular Surgery
DX: N18.6 End stage renal disease (principal)
CPT/HCPCS: 36589; C1750; C1769; Q9967

== ENCOUNTER → 2018-08-15 | Outpatient (REF) | payer BC ==
[~2018-08-15] MED LIST changes: -BUPIVACAINE HCL 0.5% 10 ML VIAL As Ordered ONE; -HEPARIN 1,000 UNITS/ML 10ML VIAL (FOR RADIOLOGY& DIALYSIS ONLY) As Ordered ONE; -ISOVUE-300 61% 100ML VIAL (Q9967) As Ordered ONE; -LIDOCAINE 2% MDV 20 ML VIAL As Ordered ONE; -MIDAZOLAM INJ 2 MG/2 ML VIAL (J2250) As Ordered ONE; -fentaNYL 100 MCG/2 ML INJECTION (J3010) As Ordered ONE
== END ==
LOC: M LAB REF 18:54
PROVIDERS: ATTEND Internal Medicine Nephrology
DX: N04.2 Nephrotic syndrome with diffuse membranous glomerulonephritis (principal)

== ENCOUNTER → 2018-09-21 | Outpatient (CLI) | payer BC ==
--- NOTE | 2018-09-21 15:53 | REP ---
BILATERAL UPPER EXTREMITY DUPLEX DOPPLER ARTERIAL AND VENOUS ULTRASOUND: Real-time ultrasound evaluation and duplex Doppler interrogation of bilateral upper extremity arterial and venous systems is performed to evaluate for AV fistula placement. No deep vein thrombosis is seen bilaterally. On the right, the basilic vein measures 6 mm at the upper humerus, 4 mm at the lower humerus and upper forearm and 2 mm in the lower forearm and wrist. Median cubital vein measures 4 mm. Right cephalic vein measures 4 mm at the upper humerus, 2 mm at the lower humerus, 3 mm in the upper forearm and 2 mm in the lower forearm and wrist. Right upper extremity arterial structures demonstrate normal flow velocities and triphasic waveforms. Right axillary artery measures 6 mm, brachial artery 5 mm, radial artery at the wrist 4 mm and ulnar artery at the wrist 2 mm. On the left, basilic vein measures 4 mm at the upper humerus, 5 mm at the lower humerus, 3 mm in the upper forearm and 1 mm in the lower forearm and wrist. Median cubital vein measures 4 mm. Left cephalic vein measures 4 mm at the level of the upper and lower humerus, 2 mm in the upper and lower forearm. Left upper extremity arterial structures demonstrate normal flow velocities with triphasic waveforms. The left axillary and brachial arteries measure 5 mm. The left radial artery measures 3 mm and ulnar artery 2 mm. Electronically Signed by Reynaldo Logan MD 09/21/2018 04:39 P
== END ==
LOC: M RAD 13:07
PROVIDERS: ATTEND Internal Medicine Nephrology
DX: Z01.818 Encounter for other preprocedural examination (principal); N04.2 Nephrotic syndrome with diffuse membranous glomerulonephritis; Z99.2 Dependence on renal dialysis

== ENCOUNTER → 2018-09-26 | Outpatient (CLI) | payer BC ==
[~2018-09-26] MED LIST changes: +BUPIVACAINE HCL 0.5% 10 ML VIAL As Ordered ONE; +HEPARIN 1,000 UNITS/ML 10ML VIAL (FOR RADIOLOGY& DIALYSIS ONLY) As Ordered ONE; +LIDOCAINE 2% MDV 20 ML VIAL As Ordered ONE
--- NOTE | 2018-09-29 10:26 | REPIR ---
DATE OF PROCEDURE: 09/26/2018 ATTENDING SURGEON: Dr. Liam Graves FELT STRIP FINISHER: Kera Harris PREOPERATIVE DIAGNOSES: End-stage renal disease, dysfunctional right internal jugular vein PermaCath POSTOPERATIVE DIAGNOSES: End-stage renal disease, dysfunctional right internal jugular vein PermaCath. PROCEDURE: Right internal jugular vein PermaCath removal with insertion of a right internal jugular vein DuraMax 23 cm tipped cuff tunneled central venous catheter. INDICATION: The patient is a 33-year-old male with end-stage renal disease who underwent placement of a right internal jugular vein PermaCath which has come unusable due to dysfunction and will undergo revision and/or replacement of the PermaCath. ANESTHESIA: Local with 10 mL of 2% lidocaine mixed with 0.5% Marcaine. FLUORO TIME: 0.1 minutes. CONTRAST: None. COMPLICATIONS: None. DRAINS: None. SPECIMENS: None. IMPLANTS: None. PROCEDURE: The patient was taken the angiography suite, placed supine on the angiography room table. The old catheter was removed over an angled Glidewire. A 23 cm tipped cuff Bioflow catheter was advanced over the wire and placed with the tip in the superior vena cava right atrial junction. Both ports were aspirated and noted to aspirate easily and then flushed with heparinized saline. Catheter was secured to the right anterior chest wall using 2-0 Prolene suture. Dressings were then applied. The patient tolerated the procedure well. All instrument, sponge, needle counts were correct at the end the case. There were no complications. Dr. Graves was present for and directed the entire case. The patient was transferred to the holding area and subsequent discharged.
== END | disposition home or self-care (01) ==
LOC: M IRPRO 10:45
PROVIDERS: ATTEND Surgery Vascular Surgery
DX: T82.49XA Other complication of vascular dialysis catheter, initial encounter (principal); N18.6 End stage renal disease
CPT/HCPCS: 36581; 77001; C1750; C1769

== ENCOUNTER → 2018-10-24 | Outpatient (REF) | payer BC ==
[~2018-10-24] MED LIST changes: +ASPI81TA26 PO; -BUPIVACAINE HCL 0.5% 10 ML VIAL As Ordered ONE; -HEPARIN 1,000 UNITS/ML 10ML VIAL (FOR RADIOLOGY& DIALYSIS ONLY) As Ordered ONE; -LIDOCAINE 2% MDV 20 ML VIAL As Ordered ONE; -OMEP20CA3 PO; +OMEP20CA4 PO; +PRED5PAK PO; +VITA1CAP25 PO
== END ==
LOC: M LAB REF 17:11
PROVIDERS: ATTEND Internal Medicine Nephrology
DX: Z01.818 Encounter for other preprocedural examination (principal)

== ENCOUNTER → 2018-11-06 | Outpatient (CLI) | payer BC ==
[~2018-11-06] MED LIST changes: +NIFE1TAB52 PO; -NIFE30TA7 PO; +OMEP1CAP73 PO; -OMEP20CA4 PO
--- NOTE | 2018-11-06 17:20 | REP ---
CT ABDOMEN AND PELVIS WITHOUT CONTRAST: CT abdomen and pelvis was performed without oral or IV contrast. Sagittal and coronal reconstruction images are performed. Visualized lung bases demonstrate minor fibro atelectatic change. The liver, spleen, adrenals, pancreas and kidneys are grossly unremarkable. No renal contour abnormalities are seen. There is no evidence of hydronephrosis or nephrolithiasis. Ureters are normal in caliber. There is no abdominal aortic aneurysm. There is no adenopathy. There is no free air or free fluid. There is no bowel wall thickening. The appendix is normal. No pelvic mass is seen. The urinary bladder is grossly unremarkable. IMPRESSION: Negative noncontrast CT abdomen and pelvis. Electronically Signed by Reynaldo Logan MD 11/07/2018 05:25 P
== END ==
LOC: M RAD 15:49
PROVIDERS: ATTEND Internal Medicine Nephrology
DX: Z01.818 Encounter for other preprocedural examination (principal)

== ENCOUNTER 2018-11-10 05:53 | Day surgery (SDC) | payer BC ==
[~2018-11-10] VITALS: Ht 177.8 cm; Wt 108.8 kg
[2018-11-10] MEDS ORDERED: LIDOCAINE 1% MDV 20ML VIAL SQ PRN (06:00)
[2018-11-10] MEDS ORDERED: D5W/0.2% SODIUM CHLORIDE 1,000 ML IV ONE (06:00)
[2018-11-10] MEDS ORDERED: LIDOCAINE 1% SDV INJ 30 ML VIAL As Ordered ONE (06:58)
[2018-11-10] MEDS ORDERED: BUPIVACAINE HCL 0.5% 30 ML VIAL As Ordered ONE (06:59)
[2018-11-10] MEDS ORDERED: ISOVUE-300 61% 50ML VIAL (Q9967) As Ordered ONE (06:59)
[2018-11-10] MEDS ORDERED: HEPARIN SOD (PORCINE) 5000 UNITS/ML VIAL As Ordered ONE (06:59)
[2018-11-10] MEDS ORDERED: LIDOCAINE 2% INJ 100 MG/5 ML SDV (FOR ANES.) As Ordered ONE (07:09)
[2018-11-10] MEDS ORDERED: propofoL 200 MG/20 ML VIAL As Ordered ONE (07:09)
[2018-11-10] MEDS ORDERED: MIDAZOLAM INJ 2 MG/2 ML VIAL (J2250) As Ordered ONE (07:10)
[2018-11-10] MEDS ORDERED: fentaNYL 100 MCG/2 ML INJECTION (J3010) As Ordered ONE (07:10)
[2018-11-10] MEDS ORDERED: ONDANSETRON 4MG/2ML VIAL (J2405) As Ordered ONE (07:10)
[2018-11-10 09:20] VITALS: BP 112/75
[2018-11-10] MEDS ORDERED: ONDANSETRON 4MG/2ML VIAL (J2405) IV PRN (09:30)
--- NOTE | 2018-12-07 09:47 | RO ---
DATE OF PROCEDURE: 11/10/2018 ATTENDING SURGEON: Dr. Olga Graves MATHEMATICAL ENGINEER: None. PREOPERATIVE DIAGNOSES: End-stage renal disease, right internal jugular vein tunneled central venous catheter. POSTOPERATIVE DIAGNOSES: End-stage renal disease, right internal jugular vein tunneled central venous catheter. PROCEDURE: Left radiocephalic arteriovenous fistula formation. INDICATION: The patient is a 33-year-old male with end-stage renal disease who requires access for hemodialysis who will undergo a left arm AV fistula. Risks, benefits, and alternative treatment options were discussed with the patient. ANESTHESIA: Local monitored anesthesia care (MAC). ESTIMATED BLOOD LOSS: 50 mL. IV FLUIDS: 200 mL. HEPARIN: None. COMPLICATIONS: DRAINS: None. SPECIMENS: None. PROCEDURE: The patient was taken to the operating room, placed supine on the operating room table, and then prepped and draped in a standard surgical fashion. Two incisions were made at the wrist exposing the left cephalic vein and radial artery. The cephalic vein was brought through a tunnel between the two incisions and then anastomosed to the radial artery in an end-to-side fashion using #6-0 Prolene suture. There was good flow through the fistula at the completion of the intervention. Hemostasis was obtained, after which, the incisions were closed using #3-0 Monocryl in a running subcuticular fashion. Steri-Strips and dressings were applied. The patient tolerated the procedure well. All instrument, sponge, and needle counts were correct at the end the case. There were no complications. Dr. Graves was present for and directed the entire case. The patient was transferred to the recovery room and subsequently discharged in stable condition.
== END 2018-11-10 09:33 | disposition home or self-care (01) ==
LOC: M SDC 05:53
PROVIDERS: ATTEND Surgery Vascular Surgery
DX: N18.6 End stage renal disease (principal); N04.2 Nephrotic syndrome with diffuse membranous glomerulonephritis; I15.0 Renovascular hypertension; N25.81 Secondary hyperparathyroidism of renal origin; K21.9 Gastro-esophageal reflux disease without esophagitis; D63.1 Anemia in chronic kidney disease; J45.909 Unspecified asthma, uncomplicated; Z88.0 Allergy status to penicillin; Z88.1 Allergy status to other antibiotic agents; Z88.8 Allergy status to other drugs, medicaments and biological substances; Z79.899 Other long term (current) drug therapy; Z79.82 Long term (current) use of aspirin; Z95.828 Presence of other vascular implants and grafts; Z87.891 Personal history of nicotine dependence
CPT/HCPCS: 36415; 36821; 84132; J2250; J2405; J3010

== ENCOUNTER → 2018-11-22 | Outpatient (CLI) | payer BC ==
[~2018-11-22] MED LIST changes: +BUPIVACAINE HCL 0.5% 10 ML VIAL As Ordered ONE; +ISOVUE-300 61% 50ML VIAL (Q9967) As Ordered ONE; +LIDOCAINE 2% MDV 20 ML VIAL As Ordered ONE; +MIDAZOLAM INJ 2 MG/2 ML VIAL (J2250) As Ordered ONE; -NIFE1TAB52 PO; +NIFE30TA7 PO; -OMEP1CAP73 PO; +OMEP20CA4 PO; +diphenhydrAMINE INJ 50MG/ML VIAL (J1200) As Ordered ONE; +fentaNYL 100 MCG/2 ML INJECTION (J3010) As Ordered ONE
[2018-11-22 08:56] VITALS: BP 128/66
--- NOTE | 2018-12-07 14:29 | REPIR ---
DATE OF PROCEDURE: 10/25/2018 ATTENDING SURGEON: Dr. Liam Graves THREAD GRINDER TOOL: Cynthia Willett and Kera Harris PREOPERATIVE DIAGNOSIS: End-stage renal disease, dysfunctional left radiocephalic arteriovenous fistula. POSTOPERATIVE DIAGNOSIS: End-stage renal disease, dysfunctional left radiocephalic arteriovenous fistula. PROCEDURE: Ultrasound-guided left radial artery cannulation, left upper extremity angiogram. INDICATION: The patient is a 33-year-old female who underwent creation of a left radiocephalic arteriovenous fistula which is now thrombosed. The patient will undergo attempted recanalization and salvage of the fistula. ANESTHESIA: Local with 10 mL of 2% lidocaine mixed with 0.5% Marcaine. FLUORO TIME: 4.2 minutes. CONTRAST: 1 mL of Isovue-300. HEPARIN: None. COMPLICATIONS: None. DRAINS: None. SPECIMENS: None. IMPLANTS: None. DESCRIPTION OF PROCEDURE: The patient was taken to the angiography suite and placed supine on the angiography room table. The left upper extremity was prepped and draped in the standard surgical fashion. Ultrasound was used to guide cannulation of the left radial artery and an angiogram was performed showing occlusion of the cephalic vein at the anastomosis. Attempts were made to recanalize through the radial artery into the cephalic vein without success. The catheters and wires were removed and manual compression was applied at the puncture site for hemostasis. Dressings were then applied. The patient tolerated the procedure well. All instrument, sponge and needle counts were correct at the end of the case. There were no complications. Dr. Graves was present for and directed the entire case. The patient was transferred to the holding area and subsequently discharged in stable condition.
== END ==
LOC: M IRPRO 07:05
PROVIDERS: ATTEND Surgery Vascular Surgery
DX: T82.898A Other specified complication of vascular prosthetic devices, implants and grafts, initial encounter (principal); N18.6 End stage renal disease; N04.2 Nephrotic syndrome with diffuse membranous glomerulonephritis; I15.0 Renovascular hypertension; N25.81 Secondary hyperparathyroidism of renal origin; K21.9 Gastro-esophageal reflux disease without esophagitis; D63.1 Anemia in chronic kidney disease; J45.909 Unspecified asthma, uncomplicated; Z88.0 Allergy status to penicillin; Z88.1 Allergy status to other antibiotic agents; Z88.8 Allergy status to other drugs, medicaments and biological substances; Z79.899 Other long term (current) drug therapy; Z79.82 Long term (current) use of aspirin; Z95.828 Presence of other vascular implants and grafts; Z87.891 Personal history of nicotine dependence; X58.XXXA Exposure to other specified factors, initial encounter; Y92.9 Unspecified place or not applicable; Y93.9 Activity, unspecified; Y99.9 Unspecified external cause status
CPT/HCPCS: 36140; 75710; C1769; C1887; C1894; J1200; Q9967

== ENCOUNTER → 2018-12-14 | Outpatient (CLI) | payer OTHER ==
[~2018-12-14] MED LIST changes: -BUPIVACAINE HCL 0.5% 10 ML VIAL As Ordered ONE; -ISOVUE-300 61% 50ML VIAL (Q9967) As Ordered ONE; -LIDOCAINE 2% MDV 20 ML VIAL As Ordered ONE; -MIDAZOLAM INJ 2 MG/2 ML VIAL (J2250) As Ordered ONE; +NIFE1TAB52 PO; -NIFE30TA7 PO; +OMEP1CAP73 PO; -OMEP20CA4 PO; -diphenhydrAMINE INJ 50MG/ML VIAL (J1200) As Ordered ONE; -fentaNYL 100 MCG/2 ML INJECTION (J3010) As Ordered ONE
--- NOTE | 2018-12-14 10:11 | REP ---
REASON FOR EXAM: Tobacco abuse. COMPARISON EXAM: 07/15/2018 The lack of intravenous contrast decreases the sensitivity of the exam. The mediastinum and pulmonary elysia are unchanged, showing no evidence of a mass or adenopathy. There are no pleural or pericardial effusions. There is no change in the imaged upper abdomen. There is no change in the imaged osseous structures. The tip of the central venous catheter is in the superior vena cava. Evaluation of the lung ware shows an inferior lingular asymmetric density, which has developed since the last exam, measuring approximately 1.8 cm in its greatest dimension and likely subsegmental atelectatic change. No new abnormal nodules, masses, or opacities have developed. There are no abnormal septal opacities. There are no abnormal ground-glass opacities. There is no evidence of bronchiectasis. There is stable, minimal biapical pleuroparenchymal scarring. In the lateral segment of the right middle lobe, there is a small pleural-based density, which is slightly irregular and measures 5 mm. This is unchanged from the prior exam. IMPRESSION: 1. No evidence of pulmonary fibrosis. 2. Parenchymal opacities, as described above, likely representing subsegmental atelectatic change in the inferior lingula and fibrotic change in the right middle lobe. There is no evidence of acute disease. Other findings as described above. Electronically Signed by Aleksey Walsh DO 12/14/2018 10:55 A
== END ==
LOC: M RAD 09:32
PROVIDERS: ATTEND Internal Medicine Nephrology
DX: Z01.818 Encounter for other preprocedural examination (principal); Z12.2 Encounter for screening for malignant neoplasm of respiratory organs

== ENCOUNTER 2019-01-04 06:58 | Day surgery (SDC) | payer OTHER ==
[~2019-01-04] VITALS: Ht 180.3 cm; Wt 108.0 kg
[~2019-01-04 06:58] MED LIST changes: +LR 1,000 ML IV ONE; -NIFE1TAB52 PO; +NIFE30TA7 PO; -OMEP1CAP73 PO; +OMEP20CA4 PO
[2019-01-04] MEDS ORDERED: NS 1,000 ML IV ONE (07:35)
[2019-01-04] MEDS ORDERED: BUPIVACAINE HCL 0.5% 10 ML VIAL As Ordered ONE (08:16)
[2019-01-04] MEDS ORDERED: HEPARIN SOD (PORCINE) 5000 UNITS/ML VIAL As Ordered ONE (08:17)
[2019-01-04] MEDS ORDERED: LIDOCAINE 2% MDV 20 ML VIAL As Ordered ONE (08:17)
[2019-01-04] MEDS ORDERED: LIDOCAINE 2% INJ 100 MG/5 ML SDV (FOR ANES.) As Ordered ONE (08:34)
[2019-01-04] MEDS ORDERED: ONDANSETRON 4MG/2ML VIAL (J2405) As Ordered ONE (08:34)
[2019-01-04] MEDS ORDERED: MIDAZOLAM INJ 2 MG/2 ML VIAL (J2250) As Ordered ONE (08:34)
[2019-01-04] MEDS ORDERED: PROPOFOL 200 MG/20 ML VIAL As Ordered ONE (08:34)
[2019-01-04] MEDS ORDERED: fentaNYL 100 MCG/2 ML INJECTION (J3010) As Ordered ONE (08:34)
[2019-01-04 09:55] VITALS: BP 115/72
--- NOTE | 2019-01-11 12:26 | ROOPDOC ---
[facility] Report Of Operation Report of Operation DATE OF PROCEDURE: 01/04/2019 PREOPERATIVE DIAGNOSES: End-stage renal disease requiring access for renal replacement therapy via hemodialysis, right internal jugular vein tunneled ce ntral venous catheter, thrombosed left autogenous radiocephalic arteriovenous fistula. POSTOPERATIVE DIAGNOSES: End-stage renal disease requiring access for renal replacement therapy via hemodialysis, right internal jugular vein tunneled central venous catheter, thrombosed left autogenous radiocephalic artery venous fistula. PROCEDURE: Left brachiocephalic autogenous arteriovenous fistula creation. SURGEON: Dr. Olga Graves MD NURSE STAFF: None INDICATION: Patient is a 33-year-old male with renal failure who requires access for hemodialysis. Patient currently dialyzes through a right internal jugular vein tunneled central venous catheter. Patient underwent creation of a left radiocephalic autogenous arteriovenous fistula which subsequently thrombosed. Patient will now undergo a left brachiocephalic autogenous arteriovenous fistula creation. The procedure was described and explained to the patient in detail including drawing of pictures demonstrating the procedure and the anatomy. Risks, benefits and alternative treatment options were discussed with the patient. Benefits included but were not limited to having a functioning arteriovenous fistula for hemodialysis access and removal of tunneled central venous catheter once the fistula is successfully being used. Alternative treatment options included but were not limited to no intervention with continued conservative management. Risks included but were not limited to infection, bleeding, failure of arteriovenous to maintain patency with thrombosis, failure of arteriovenous fistula to mature requiring secondary intervention, steal syndrome, anesthetic complication, bruising, scarring, nerve damage, possible need for transfusion of blood products,, possible need for further open surgical intervention, cer ebrovascular accident, myocardial infarction, pulmonary embolus , deep venous thrombosis, reaction or complication from the prepping and draping materials, numbness, tingling, swelling of the extremity, loss of limb, loss of life and poor outcome. Patient's questions were answered. Patient voices understanding of the risks, benefits and alternative treatment options. Patient voices acceptance of these risks, benefits and alternative treatment options and consents to proceed with arterial venous fistula formation. No promises were made to the patient or his family regarding the outcome and/or results of the procedure. ANESTHESIA: Local Mac. IVF: 200 mL ESTIMATED BLOOD LOSS: 40 mL. HEPARIN:None PROTAMINE:None COMPLICATIONS:None DRAINS:None SPECIMENS:None IMPLANTS:None DESCRIPTION OF PROCEDURE: Patient was taken to operating room, placed supine on the operating room table, and the patient was prepped and draped in a standard surgical fashion. A time-out was then conducted by myself and the team members in the room confirming the correct patient, procedure and laterality. A tourniquet was then applied to the left upper arm to dilate the cephalic vein. There was good cephalic vein noted at the antecubital fossa. An incision was then made at the antecubital fossa after the overlying tissue were anesthetized with 2% lidocaine mixed with 0.5 percent Marcaine. The cephalic vein and brachial artery were sharply dissected proximally and distally and encircled with vessel loops. The cephalic vein was then transected as far distal as possible with the remnant ligated with a 2-0 silk suture. The cephalic vein was then dilated using heparinized saline. The cephalic vein was brought to the brachial artery and anastomosed to the brachial artery in an end to side fashion using 6-0 Prolene suture after an arteriotomy was made in the brachial artery and elongated with ly scissors. There was good flow noted in the fistula at the completion of the anastomosis using Doppler ultrasound. Hemostasis was obtained after which the incision was closed using 2-0 Vicryl to approximate the deeper layers and the skin was approximated using 3-0 Monocryl in a running subcuticular fashion. Steri-Strips and dressings were applied. The patient tolerated the procedure well. All instrument, sponge and needle counts were correct at the end of the case. There were no complications. Dr. Graves was present for and directed the entire case. Patient was transferred to the recovery room awake, alert, extubated and in stable condition. The left hand was well perfused with 2+ radial and ulnar pulses palpable. CONCLUSION: Patient underwent creation of an autogenous left brachiocephalic arteriovenous fistula. PLAN: Patient will undergo a fistulogram in 1-2 weeks for increased size of the fistula to enable usage sooner and to ensure continued patency of the fistula especially with a history of a thrombosed left radiocephalic autogenous arteriovenous fistula. Daniele Graves MD Jan 04, 2019 08:13
== END 2019-01-04 10:10 | disposition home or self-care (01) ==
LOC: M SDC 06:58
PROVIDERS: ATTEND Surgery Vascular Surgery
DX: N18.6 End stage renal disease (principal); I12.0 Hypertensive chronic kidney disease with stage 5 chronic kidney disease or end stage renal disease; K21.9 Gastro-esophageal reflux disease without esophagitis; N25.81 Secondary hyperparathyroidism of renal origin; J45.990 Exercise induced bronchospasm; Z99.2 Dependence on renal dialysis; Z88.0 Allergy status to penicillin; Z88.1 Allergy status to other antibiotic agents; Z88.8 Allergy status to other drugs, medicaments and biological substances; Z79.82 Long term (current) use of aspirin; Z79.899 Other long term (current) drug therapy
CPT/HCPCS: 36415; 36821; 84132; J2250; J2405; J3010

== ENCOUNTER → 2019-01-18 | Outpatient (CLI) | payer OTHER ==
[~2019-01-18] MED LIST changes: -LR 1,000 ML IV ONE
== END ==
LOC: M IRPRO 13:15
PROVIDERS: ATTEND Surgery Vascular Surgery
DX: N18.6 End stage renal disease (principal); Z53.9 Procedure and treatment not carried out, unspecified reason

== ENCOUNTER → 2019-05-09 | Outpatient (CLI) | payer MEDICARE, BC ==
[~2019-05-09] MED LIST changes: +NIFE1TAB52 PO; -NIFE30TA7 PO; +OMEP1CAP73 PO; -OMEP20CA4 PO
== END ==
LOC: M LAB 11:38
PROVIDERS: ATTEND Internal Medicine Nephrology
DX: Z01.818 Encounter for other preprocedural examination (principal)

== ENCOUNTER → 2019-07-17 | Outpatient (CLI) | payer MEDICARE, BC ==
[~2019-07-17] MED LIST changes: +ISOVUE-300 61% 50ML VIAL (Q9967) As Ordered ONE; +LIDOCAINE 1% MDV 20ML VIAL As Ordered ONE; +MIDAZOLAM INJ 2MG/2ML VIAL (J2250 PER 1MG) As Ordered ONE; +RENATAB5 PO; +fentaNYL 100 MCG/2 ML INJECTION (J3010) As Ordered ONE
--- NOTE | 2019-07-17 10:46 | ROOPDOC ---
[facility] Report Of Operation Report of Operation DATE OF PROCEDURE: 07/17/19 PREPROCEDURE DIAGNOSES: End-stage renal disease with pulsatile left upper extremity brachiocephalic AV fistula and suspected outflow obstruction POSTPROCEDURE DIAGNOSES: Same PROCEDURE: 1. Ultrasound examination of left upper extremity fistula and ultrasound-guided access left cephalic vein 2. Fistulogram and central venogram 3. Angioplasty cephalic vein with 10 x 80 [place] balloon and 14 x 60 XXL balloon 4. Completion venogram SURGEON: Radha Dupont MD ANESTHESIA: Local anesthesia with 4 mL lidocaine. Moderate intravenous conscious sedation was administered by Dr. Dupont. The patient was independently monitored by a registered nurse sign to the Department of radiology using automated blood pressure, EKG, and pulse oximetry. The detailed sedation record is probably stored in the hospital information system. The following is a brief sedation record: Anesthesia start 09:48, anesthesia stop 10:18, Versed 1 mg IV, fentanyl 50 g IV. CONTRAST: 25 mL Isovue-300 INDICATION FOR PROCEDURE: This is a very pleasant 34-year-old gentleman with end-stage renal disease currently dialyzing with a PermCath and wanting to convert to his left upper extremity brachiocephalic AV fistula. He had some pulsatility in suspicion of outflow obstruction and risks benefits and alternatives to a fistulogram and potential intervention were explained to the patient needs agreeable to proceed informed consent was obtained. INTERPRETATION: 1. Ultrasound confirmed widely patent flow through the AV anastomosis and fistulogram confirm widely patent inflow through the cephalic vein which I estimated to be between 10 and 12 mm diameter, but there is tortuosity in the cephalic vein near the shoulder and then widely patent flow through the proximal cephalic vein into the subclavian vein and the central veins are all widely patent. There is a large branch off of the cephalic vein, but it is helping with her outflow and does not seem to be competing for flow within the fistula, so we did not coiled this branch. 2. After angioplasty of the cephalic vein tortuosity with a 10 x 80 [place] balloon, there was minimal improvement and I suspect the balloon was too small to dramatically improve patency. After angioplasty with a 14 x 60 XXL balloon, there is a marked improvement in flow and improvement in the thrill of the fistula. No extravasation, embolization, or residual stenosis is present. REPORT OF OPERATION: The patient was brought to the angiographic suite in stable condition his left upper extremity was prepped and draped in a sterile fashion. A timeout was performed. We examined the fistula under ultrasound including the AV anastomosis which was widely patent. Local anesthesia was administered to the skin and subcutaneous tissue over the cephalic vein near the AV anastomosis. Ultrasound was used to gain access to the vein with a microneedle. A wire was passed through this access under fluoroscopic guidance the needle was removed. A 4 [place] sheath was placed and flushed with the. A fistulogram and central venogram was performed. Please interpretation above. A Glidewire was advanced in the central system under fluoroscopic guidance in the sheath was exchanged for 6 [place] sheath and flushed with saline. A 10 x 80 balloon was used to angioplasty across the area of tortuosity in the cephalic vein proximal to the shoulder, and this did reveal that there was stenosis in the area, but the balloon was too small to significantly resolve the stenosis. We removed this balloon after three-minute angioplasty and exchange the sheath over the wire for 7 [place] sheath and flushed the sheath with saline, and then placed a 14 x 60 XXL balloon, and angioplastied for three-minute inflations along the length of the cephalic vein near the shoulder. Following this, there was widely patent flow and improvement in thrill in the fistula. The suture was placed in a [id number] pattern at the sheath site and the sheath was removed. Pressure was held for 5 minutes and good hemostasis was noted. Sterile dressings were applied. We then utilized ultrasound to kristen the fistula on the arm as I feel it is suitable to try cannulation at this point. ESTIMATED BLOOD LOSS: Approximately 2 mL. COMPLICATIONS: None. PLAN: It is okay to use the fistula for dialysis at this time. We will see how the patient does, but if they are able to cannulate and are happy with the fistula, we can remove his PermCath. It is okay to resume home diet medications. RADHA DUPONT MD Jul 17, 2019 10:46
[2019-07-17 11:15] VITALS: BP 142/78
== END ==
LOC: M IRPRO 08:24
PROVIDERS: ATTEND Surgery Vascular Surgery
DX: T82.590A Other mechanical complication of surgically created arteriovenous fistula, initial encounter (principal); N18.6 End stage renal disease; X58.XXXA Exposure to other specified factors, initial encounter
CPT/HCPCS: 36902; 99152; 99153; C1725; C1769; C1894; J1644; J2250; J3010; Q9967

== ENCOUNTER → 2019-08-14 | Outpatient (CLI) | payer BC, MEDICARE ==
[~2019-08-14] MED LIST changes: -ISOVUE-300 61% 50ML VIAL (Q9967) As Ordered ONE; -LIDOCAINE 1% MDV 20ML VIAL As Ordered ONE; -MIDAZOLAM INJ 2MG/2ML VIAL (J2250 PER 1MG) As Ordered ONE; -fentaNYL 100 MCG/2 ML INJECTION (J3010) As Ordered ONE
== END ==
LOC: M LAB 07:51
PROVIDERS: ATTEND Internal Medicine Nephrology
DX: Z01.818 Encounter for other preprocedural examination (principal)

== ENCOUNTER → 2019-09-04 | Outpatient (CLI) | payer MEDICARE, OTHER ==
[~2019-09-04] MED LIST changes: +LIDOCAINE W/EPINEPHRINE 1% 20ML VIAL As Ordered ONE
--- NOTE | 2019-09-04 08:52 | ROOPDOC ---
[facility] Report Of Operation Report of Operation DATE OF PROCEDURE: 09/04/19 PREPROCEDURE DIAGNOSES: End-stage renal disease no longer requiring PermCath for dialysis POSTPROCEDURE DIAGNOSES: Same PROCEDURE: Removal right IJ PermCath SURGEON: Chad Dupont MD ANESTHESIA: Local anesthesia 10 mL lidocaine with epinephrine INDICATION FOR PROCEDURE: This is a very pleasant 34-year-old gentleman with end-stage renal disease who no longer requires his PermCath for dialysis. Risks benefits and alternatives were explained to the patient and he is agreeable to proceed. Informed consent was obtained. REPORT OF OPERATION: The patient's right neck and chest were prepped and draped in a sterile fashion. A timeout was performed. Local anesthesia was administered to the skin and subcutaneous tissue around the exit site of the PermCath on the right chest. The sutures were removed. Blunt dissection was used to loosen the cuff from the soft tissue. Once the cuff was removed, pressure was held at the jugular access site and the catheter was completely removed. Catheter was inspected and found to be completely intact, including the cuff and the tips. No part was left behind. After 10 minutes of pressure sterile dressings were applied and the patient was monitored for 30 minutes to make sure he is no hematoma in the right neck. He tolerated the procedure well without complication. ESTIMATED BLOOD LOSS: Approximately 1 mL. COMPLICATIONS: None. PLAN: Okay for discharge after monitoring right neck for hematoma for a half hour. Keep head elevated today. Try to avoid laying flat or bending over at the waist. Try to keep had greater than 45 elevated for the rest of the day. Okay to remove the dressing tomorrow. Okay to shower. Dry dressing over the exit site on the right chest as needed. No strenuous exercise for 48 hours. No lifting greater than 5 pounds for 48 hours. We appreciate the opportunity to participate in the care of this patient. We wish him the best of luck with his upcoming renal transplant. CHAD DUPONT MD September 04, 2019 08:52
[2019-09-04 09:10] VITALS: BP 149/87
== END ==
LOC: M IRPRO 07:22
PROVIDERS: ATTEND Surgery Vascular Surgery
DX: Z45.2 Encounter for adjustment and management of vascular access device (principal); N18.6 End stage renal disease; I12.9 Hypertensive chronic kidney disease with stage 1 through stage 4 chronic kidney disease, or unspecified chronic kidney disease; J45.909 Unspecified asthma, uncomplicated

== ENCOUNTER → 2019-10-18 | Outpatient (CLI) | payer MEDICARE, MEDICAID ==
[~2019-10-18] MED LIST changes: -LIDOCAINE W/EPINEPHRINE 1% 20ML VIAL As Ordered ONE
== END ==
LOC: M LAB 09:05
PROVIDERS: ATTEND Transplant Surgery
DX: Z01.818 Encounter for other preprocedural examination (principal)

== ENCOUNTER → 2020-08-19 | Outpatient (REF) | payer MEDICARE, MEDICAID | LOC: M LAB REF 17:19 | PROVIDERS: ATTEND Internal Medicine Nephrology | DX: Z51.81 Encounter for therapeutic drug level monitoring (principal); Z94.0 Kidney transplant status ==

== ENCOUNTER → 2020-12-24 | Outpatient (REF) | payer MEDICARE, MEDICAID ==
[~2020-12-24] MED LIST changes: +ALBU83IN INH; +ASPI-161 PO; +ESSE250T PO; +MYCO250C PO; +PRED5TA PO; +PROA1AER2 INH; +TACR0.5C3 PO; +TACR1CAP3 PO
== END ==
LOC: M LAB REF 17:11
PROVIDERS: ATTEND Internal Medicine Nephrology
DX: E83.42 Hypomagnesemia (principal); Z94.0 Kidney transplant status

== ENCOUNTER 2021-03-10 21:24 | Inpatient (IN) | payer MEDICARE, MEDICAID ==
[~2021-03-10] VITALS: Ht 177.8 cm; Wt 111.7 kg
[~2021-03-10 21:24] MED LIST changes: -ALBU83IN INH; -ASPI-161 PO; -ESSE250T PO; -MYCO250C PO; -PRED5TA PO; -PROA1AER2 INH; -TACR0.5C3 PO; -TACR1CAP3 PO
[2021-03-10] MEDS ORDERED: ALBUTEROL SULFATE 2.5 MG/0.5 ML INH NEB SOLN NEB PRN (23:30)
[2021-03-10] MEDS ORDERED: HEPARIN SOD (PORCINE) 5000UNITS/ML 1ML VIAL/SYRINGE SC SCH (23:30)
[2021-03-11] VITALS (10 sets, daily range): BP systolic 122–147; BP diastolic 64–98; O2SAT 90–95
[2021-03-11] MEDS: IPRATROPIUM 0.5MG/ALBUTEROL 2.5MG INH SOL UD 3ML (DUONEB) NEB SCH ×2 (02:15→09:06)
[2021-03-11 02:16] LABS: VENOUS BASE EXCESS -3.9 (-2.0-2.0); VENOUS HCO3 20.5 MEQ/L (23.0-27.0); VENOUS O2 SATURATION 89.4 % (60.0-80.0); VENOUS PARTIAL PRESSURE CO2 35.6 mmHg (38.0-50.0); VENOUS PARTIAL PRESSURE O2 59.3 mmHg (30.0-50.0); VENOUS PH 7.378 UNITS (7.330-7.430); VENOUS STANDARD HCO3 21.1 MEQ/L; VENOUS TOTAL CO2 21.6 MEQ/L (24.0-28.0)
[2021-03-11 02:18] LABS: HEMATOCRIT 43.8 % (42.0-52.0); HEMOGLOBIN 14.7 g/dl (13.5-17.5); MEAN CORPUSCULAR HEMOGLOBIN 28.8 pg (27.0-33.0); MEAN CORPUSCULAR HGB CONC 33.6 g/dl (32.0-36.5); MEAN CORPUSCULAR VOLUME 85.7 fl (80.0-96.0); PLATELET COUNT, AUTOMATED 231 10^3/uL (150-450); RED BLOOD COUNT 5.11 10^6/uL (4.30-6.10); WHITE BLOOD COUNT 5.8 10^3/uL (4.0-10.0)
[2021-03-11 02:29] LABS: INR 1.04
[2021-03-11 02:30] LABS: PARTIAL THROMBOPLASTIN TIME 27.4 SECONDS (25.9-37.0)
[2021-03-11 02:32] LABS: D-DIMER QUANT 1939.45 ng/ml (<500)
[2021-03-11 02:50] LABS: ALBUMIN 3.5 GM/DL (3.2-5.2); ALT/SGPT 41 U/L (12-78); BILIRUBIN,DIRECT 0.1 MG/DL (0.0-0.2); BILIRUBIN,TOTAL 0.4 MG/DL (0.2-1.0); BLOOD UREA NITROGEN 21 MG/DL (7-18); C REACTIVE PROTEIN QUANTITATIV 6.56 MG/DL (0.00-0.30); CARBON DIOXIDE LEVEL 27 MEQ/L (21-32); CHLORIDE LEVEL 103 MEQ/L (98-107); CREATININE FOR GFR 1.23 MG/DL (0.70-1.30); FERRITIN 1995 NG/ML (26-388); GLOMERULAR FILTRATION RATE > 60.0 (>60); GLUCOSE, FASTING 155 MG/DL (70-100); LDH LACTATE DEHYDROGENASE 883 U/L (87-241); MAGNESIUM LEVEL 2.4 MG/DL (1.8-2.4); NT-PRO BNP 409 PG/ML (<125); POTASSIUM SERUM 4.1 MEQ/L (3.5-5.1); SODIUM LEVEL 135 MEQ/L (136-145)
[2021-03-11 02:51] LABS: CPK CREATINE PHOSPHOKINASE 41 U/L (39-308); TROPONIN I < 0.02 NG/ML (< 0.10)
[2021-03-11] MEDS ORDERED: METO1TAB87 PO (03:03)
[2021-03-11] MEDS ORDERED: PRED5TA PO (03:03)
[2021-03-11] MEDS ORDERED: MYCO250C PO (03:03)
[2021-03-11] MEDS ORDERED: ESSE250T PO (03:03)
[2021-03-11] MEDS ORDERED: TACR0.5C3 PO (03:03)
[2021-03-11] MEDS ORDERED: PROA1AER2 INH (03:03)
[2021-03-11] MEDS ORDERED: ASPI-161 PO (03:03)
[2021-03-11] MEDS ORDERED: ALBU83IN INH (03:03)
[2021-03-11] MEDS ORDERED: TACR1CAP3 PO (03:03)
[2021-03-11] MEDS ORDERED: HOME MED LIST COMPLETE! XX SCH (03:05)
[2021-03-11 03:07] LABS: ATYPICAL LYMPH 3 % (0-5); LYMPHOCYTES 11 % (16-44); MONOCYTES 9 % (0-5); MYELOCYTES 1 % (0-0); NEUTROPHILS 76 % (28-66)
[2021-03-11 03:08] LABS: PLATELET ESTIMATE NORMAL (NORMAL)
[2021-03-11 08:12] LABS: HEMATOCRIT 46.9 % (42.0-52.0); HEMOGLOBIN 15.5 g/dl (13.5-17.5); MEAN CORPUSCULAR HEMOGLOBIN 28.6 pg (27.0-33.0); MEAN CORPUSCULAR VOLUME 86.5 fl (80.0-96.0); PLATELET COUNT, AUTOMATED 262 10^3/uL (150-450); RED BLOOD COUNT 5.42 10^6/uL (4.30-6.10); WHITE BLOOD COUNT 7.5 10^3/uL (4.0-10.0)
[2021-03-11 08:34] LABS: HEMOGLOBIN A1c 5.4 %
[2021-03-11 08:37] LABS: ALBUMIN 3.2 GM/DL (3.2-5.2); ALT/SGPT 40 U/L (12-78); BILIRUBIN,DIRECT 0.1 MG/DL (0.0-0.2); BILIRUBIN,TOTAL 0.4 MG/DL (0.2-1.0); BLOOD UREA NITROGEN 23 MG/DL (7-18); CALCIUM LEVEL 9.2 MG/DL (8.5-10.1); CARBON DIOXIDE LEVEL 25 MEQ/L (21-32); CHLORIDE LEVEL 103 MEQ/L (98-107); CREATININE FOR GFR 1.22 MG/DL (0.70-1.30); GLOMERULAR FILTRATION RATE > 60.0 (>60); GLUCOSE, FASTING 120 MG/DL (70-100); MAGNESIUM LEVEL 2.4 MG/DL (1.8-2.4); POTASSIUM SERUM 4.1 MEQ/L (3.5-5.1); SODIUM LEVEL 135 MEQ/L (136-145); TOTAL PROTEIN 7.4 GM/DL (6.4-8.2)
[2021-03-11 08:54] LABS: ATYPICAL LYMPH 9 % (0-5); LYMPHOCYTES 10 % (16-44); MONOCYTES 15 % (0-5); MYELOCYTES 2 % (0-0); NEUTROPHILS 64 % (28-66); PLATELET ESTIMATE NORMAL (NORMAL)
[2021-03-11 08:55] LABS: ANISOCYTOSIS 1+
[2021-03-11] MEDS: METOPROLOL TART 50 MG TAB PO SCH ×2 (08:58→21:52)
[2021-03-11] MEDS: MAGNESIUM OXIDE 400MG TAB (MAG-OX) PO SCH ×2 (08:58→21:52)
[2021-03-11] MEDS: ENOXAPARIN 40MG/0.4ML SYRINGE (J1650 PER 10MG) SC SCH (08:59)
[2021-03-11] MEDS: ASPIRIN 81MG ENTERIC TABLET PO SCH (08:59)
[2021-03-11] MEDS: dexameTHASONE 4 MG/ML 1ML VIAL (J1100 PER 1MG) IV SCH (08:59)
[2021-03-11] MEDS ORDERED: TACROLIMUS 1 MG CAP (J7507) PO SCH (09:00)
[2021-03-11] MEDS ORDERED: TACROLIMUS 0.5 MG CAP PO SCH (09:00)
[2021-03-11] MEDS ORDERED: MYCOPHENOLATE MOFETIL 250 MG CAP (J7517) PO SCH (09:00)
[2021-03-11] MEDS ORDERED: LevoFLOXacin IV 500 MG in IV 1 EA IV SCH (09:30)
[2021-03-11] MEDS: LevoFLOXacin IV 750 MG in IV 1 EA IV SCH (11:28)
[2021-03-11] MEDS: BARICITINIB 2MG TABLET (OLUMIANT) FOR EUA PO SCH (11:28)
[2021-03-11] MEDS ORDERED: LEVALBUTEROL HFA 45MCG/ACT 15 GM INHALER INH PRN (14:35)
[2021-03-11] MEDS: LEVALBUTEROL HFA 45MCG/ACT 15 GM INHALER INH SCH ×2 (16:00→20:00)
[2021-03-11] MEDS: REMDESIVIR 100 MG in NS 250 ML IV SCH (21:52)
[2021-03-12] VITALS: BP 122/73; O2SAT 93
[2021-03-12] MEDS: SODIUM CHLORIDE 0.9% INJ 10 ML SYR IV SCH ×2 (00:20→23:41)
[2021-03-12 04:00] VITALS: BP 115/73; O2SAT 93
[2021-03-12 04:53] LABS: HEMATOCRIT 45.9 % (42.0-52.0); HEMOGLOBIN 15.2 g/dl (13.5-17.5); MEAN CORPUSCULAR HEMOGLOBIN 28.7 pg (27.0-33.0); MEAN CORPUSCULAR HGB CONC 33.1 g/dl (32.0-36.5); MEAN CORPUSCULAR VOLUME 86.8 fl (80.0-96.0); PLATELET COUNT, AUTOMATED 259 10^3/uL (150-450); RED BLOOD COUNT 5.29 10^6/uL (4.30-6.10); WHITE BLOOD COUNT 10.8 10^3/uL (4.0-10.0)
[2021-03-12 05:06] LABS: INR 1.09; PROTHROMBIN TIME 14.5 SECONDS (12.7-14.5)
[2021-03-12 05:07] LABS: PARTIAL THROMBOPLASTIN TIME 28.6 SECONDS (25.9-37.0)
[2021-03-12 05:15] LABS: CPK CREATINE PHOSPHOKINASE 51 U/L (39-308); TROPONIN I < 0.02 NG/ML (< 0.10)
[2021-03-12 05:23] LABS: ATYPICAL LYMPH 7 % (0-5); BASOPHILS 1 % (0-1); LYMPHOCYTES 17 % (16-44); MONOCYTES 8 % (0-5); NEUTROPHILS 67 % (28-66); PLATELET ESTIMATE NORMAL (NORMAL)
[2021-03-12 05:32] LABS: ALBUMIN 3.4 GM/DL (3.2-5.2); ALT/SGPT 51 U/L (12-78); BILIRUBIN,DIRECT 0.1 MG/DL (0.0-0.2); BILIRUBIN,TOTAL 0.5 MG/DL (0.2-1.0); BLOOD UREA NITROGEN 27 MG/DL (7-18); CALCIUM LEVEL 9.1 MG/DL (8.5-10.1); CARBON DIOXIDE LEVEL 28 MEQ/L (21-32); CHLORIDE LEVEL 101 MEQ/L (98-107); CREATININE FOR GFR 1.35 MG/DL (0.70-1.30); FERRITIN 2079 NG/ML (26-388); GLOMERULAR FILTRATION RATE > 60.0 (>60); GLUCOSE, FASTING 104 MG/DL (70-100); LDH LACTATE DEHYDROGENASE 938 U/L (87-241); MAGNESIUM LEVEL 2.2 MG/DL (1.8-2.4); NT-PRO BNP 123 PG/ML (<125); POTASSIUM SERUM 4.3 MEQ/L (3.5-5.1); SODIUM LEVEL 137 MEQ/L (136-145); TOTAL PROTEIN 6.9 GM/DL (6.4-8.2)
[2021-03-12] MEDS: LEVALBUTEROL HFA 45MCG/ACT 15 GM INHALER INH SCH ×4 (08:08→20:41)
[2021-03-12 08:16] VITALS: BP 141/83
[2021-03-12] MEDS: dexameTHASONE 4 MG/ML 1ML VIAL (J1100 PER 1MG) IV SCH (08:16)
[2021-03-12] MEDS: NS 1,000 ML IV SCH ×2 (08:17→17:49)
[2021-03-12] MEDS: BARICITINIB 2MG TABLET (OLUMIANT) FOR EUA PO SCH (08:17)
[2021-03-12] MEDS: ASPIRIN 81MG ENTERIC TABLET PO SCH (08:17)
[2021-03-12] MEDS: MAGNESIUM OXIDE 400MG TAB (MAG-OX) PO SCH ×2 (08:17→22:03)
[2021-03-12] MEDS: ENOXAPARIN 40MG/0.4ML SYRINGE (J1650 PER 10MG) SC SCH (08:18)
[2021-03-12] MEDS: LevoFLOXacin IV 750 MG in IV 1 EA IV SCH (08:18)
[2021-03-12] MEDS: METOPROLOL TART 50 MG TAB PO SCH (08:18)
[2021-03-12] MEDS ORDERED: amLODIPine 5 MG TAB PO SCH (09:00)
[2021-03-12 11:35] VITALS: BP 142/77
[2021-03-12 16:27] VITALS: BP 146/83
[2021-03-12 20:00] VITALS: BP 137/71; O2SAT 90
[2021-03-12] MEDS: REMDESIVIR 100 MG in NS 250 ML IV SCH (22:04)
[2021-03-13] VITALS (7 sets, daily range): BP systolic 134–151; BP diastolic 50–99; O2SAT 83–96
[2021-03-13] MEDS: NS 1,000 ML IV SCH (03:50)
[2021-03-13 05:40] LABS: HEMATOCRIT 40.9 % (42.0-52.0); HEMOGLOBIN 13.5 g/dl (13.5-17.5); MEAN CORPUSCULAR HEMOGLOBIN 28.7 pg (27.0-33.0); PLATELET COUNT, AUTOMATED 169 10^3/uL (150-450); WHITE BLOOD COUNT 6.9 10^3/uL (4.0-10.0)
[2021-03-13 06:18] LABS: ALBUMIN 2.8 GM/DL (3.2-5.2); ALT/SGPT 37 U/L (12-78); BILIRUBIN,TOTAL 0.5 MG/DL (0.2-1.0); BLOOD UREA NITROGEN 21 MG/DL (7-18); CALCIUM LEVEL 8.4 MG/DL (8.5-10.1); CARBON DIOXIDE LEVEL 26 MEQ/L (21-32); CHLORIDE LEVEL 102 MEQ/L (98-107); CREATININE FOR GFR 1.06 MG/DL (0.70-1.30); GLOMERULAR FILTRATION RATE > 60.0 (>60); GLUCOSE, FASTING 102 MG/DL (70-100); POTASSIUM SERUM 3.8 MEQ/L (3.5-5.1); SODIUM LEVEL 134 MEQ/L (136-145); TOTAL PROTEIN 6.2 GM/DL (6.4-8.2)
[2021-03-13] MEDS: LEVALBUTEROL HFA 45MCG/ACT 15 GM INHALER INH SCH ×4 (08:56→19:38)
[2021-03-13] MEDS: ENOXAPARIN 40MG/0.4ML SYRINGE (J1650 PER 10MG) SC SCH (09:08)
[2021-03-13] MEDS: METOPROLOL TART 50 MG TAB PO SCH ×2 (09:09→20:24)
[2021-03-13] MEDS: ASPIRIN 81MG ENTERIC TABLET PO SCH (09:09)
[2021-03-13] MEDS: dexameTHASONE 4 MG/ML 1ML VIAL (J1100 PER 1MG) IV SCH (09:09)
[2021-03-13] MEDS: MAGNESIUM OXIDE 400MG TAB (MAG-OX) PO SCH ×2 (09:10→20:24)
[2021-03-13] MEDS: BARICITINIB 2MG TABLET (OLUMIANT) FOR EUA PO SCH (09:10)
[2021-03-13 09:18] LABS: NT-PRO BNP 120 PG/ML (<125)
[2021-03-13] MEDS ORDERED: LORazepam 2 MG/ML VIAL IV PRN (09:35)
[2021-03-13] MEDS: LevoFLOXacin IV 750 MG in IV 1 EA IV SCH (10:47)
[2021-03-13] MEDS: guaiFENesin/CODEINE SYRUP 5 ML UDC PO PRN ×2 (10:47→20:24)
[2021-03-13] MEDS ORDERED: LORazepam 2 MG/ML VIAL As Ordered ONE ×2 (13:22→17:59)
[2021-03-13] MEDS ORDERED: LORazepam 2 MG/ML VIAL IV ONE (14:00)
[2021-03-13 15:08] LABS: ABG BASE EXCESS -0.1 (-2.0-2.0); ABG HCO3 23.6 MEQ/L (22.0-26.0); ABG O2 SATURATION 94.2 % (95.0-99.0); ABG PARTIAL PRESSURE CO2 36.1 mmHg (35.0-45.0); ABG STANDARD HCO3 24.3 MEQ/L (22.0-26.0); ABG TOTAL CO2 24.7 MEQ/L (22.0-29.0); ABG pH (ARTERIAL) 7.434 UNITS (7.350-7.450)
[2021-03-13] MEDS ORDERED: ETOMIDATE INJ 20MG/10ML VIAL As Ordered ONE (21:32)
[2021-03-13] MEDS ORDERED: SUCCINYLCHOLINE INJ 200 MG/10 ML VIAL (J0330) As Ordered ONE (21:32)
[2021-03-13] MEDS ORDERED: PROPOFOL 1,000 MG/100 ML VIAL As Ordered ONE (21:33)
[2021-03-13] MEDS ORDERED: NS 500 ML IV ONE (22:00)
[2021-03-13] MEDS ORDERED: NOREPINEPHRINE 4 MG/4 ML AMP As Ordered ONE (22:01)
[2021-03-13] MEDS ORDERED: NOREPINEPHRINE BITARTRATE 8 MG in D5W 492 ML IV SCH (22:15)
[2021-03-13] MEDS ORDERED: dexameTHASONE 4 MG/ML 1ML VIAL (J1100 PER 1MG) IV SCH (22:15)
[2021-03-13 22:22] LABS: ABG BASE EXCESS -21.5 (-2.0-2.0); ABG HCO3 12.4 MEQ/L (22.0-26.0); ABG O2 SATURATION 64.7 % (95.0-99.0); ABG PARTIAL PRESSURE O2 52.7 mmHg (75.0-100.0); ABG STANDARD HCO3 8.9 MEQ/L (22.0-26.0); ABG TOTAL CO2 14.4 MEQ/L (22.0-29.0)
[2021-03-13 22:25] LABS: ABG PARTIAL PRESSURE CO2 66.1 mmHg (35.0-45.0); ABG pH (ARTERIAL) 6.891 UNITS (7.350-7.450)
[2021-03-13] MEDS ORDERED: LIDOCAINE 1% MDV 20ML VIAL As Ordered ONE (22:30)
[2021-03-13] MEDS ORDERED: ENOXAPARIN 100MG/1ML SYRINGE (J1650 PER 10MG) SC SCH (22:34)
[2021-03-13] MEDS ORDERED: EPINEPHrine INJ 1 MG/ML 1ML AMP As Ordered ONE ×2 (22:39→22:41)
[2021-03-13] MEDS ORDERED: VASOPRESSIN INJ 20 UNITS/ML VIAL As Ordered ONE (23:20)
[2021-03-13] MEDS ORDERED: SODIUM BICARBONATE 150 MEQ in D5W 1,000 ML IV SCH (23:40)
[2021-03-13 23:46] LABS: ABG O2 SATURATION 48.9 % (95.0-99.0); ABG STANDARD HCO3 13.6 MEQ/L (22.0-26.0); ABG TOTAL CO2 22.6 MEQ/L (22.0-29.0); ABG pH (ARTERIAL) 6.988 UNITS (7.350-7.450)
[2021-03-13 23:47] LABS: ABG PARTIAL PRESSURE CO2 85.4 mmHg (35.0-45.0); ABG PARTIAL PRESSURE O2 38.2 mmHg (75.0-100.0)
[2021-03-13 23:56] LABS: CALCIUM LEVEL 8.8 MG/DL (8.5-10.1); CREATININE FOR GFR 2.04 MG/DL (0.70-1.30); GLOMERULAR FILTRATION RATE 39.5 (>60); POTASSIUM SERUM 5.5 MEQ/L (3.5-5.1)
== END 2021-03-14 00:25 | disposition expired | DRG 208 ==
LOC: M ICU 23:10
PROVIDERS: ADMIT Internal Medicine; ATTEND Internal Medicine
PROC: 3E0333Z Introduction of Anti-inflammatory into Peripheral Vein, Percutaneous Approach (ICD-10-PCS; 2021-03-11)
PROC: 5A1935Z Respiratory Ventilation, Less than 24 Consecutive Hours (ICD-10-PCS; principal; 2021-03-13)
PROC: XW033E5 Introduction of Remdesivir Anti-infective into Peripheral Vein, Percutaneous Approach, New Technology Group 5 (ICD-10-PCS; 2021-03-13)
PROC: 06HM33Z Insertion of Infusion Device into Right Femoral Vein, Percutaneous Approach (ICD-10-PCS; 2021-03-13)
PROC: 0W9930Z Drainage of Right Pleural Cavity with Drainage Device, Percutaneous Approach (ICD-10-PCS; 2021-03-13)
PROC: 0W9B30Z Drainage of Left Pleural Cavity with Drainage Device, Percutaneous Approach (ICD-10-PCS; 2021-03-13)
DX: U07.1 COVID-19 (principal); J96.01 Acute respiratory failure with hypoxia; J12.82 Pneumonia due to coronavirus disease 2019; J45.901 Unspecified asthma with (acute) exacerbation; Z94.0 Kidney transplant status; N17.9 Acute kidney failure, unspecified; E87.4 Mixed disorder of acid-base balance; J93.9 Pneumothorax, unspecified; E66.9 Obesity, unspecified; Z79.82 Long term (current) use of aspirin; Z79.899 Other long term (current) drug therapy; Z88.0 Allergy status to penicillin; Z88.1 Allergy status to other antibiotic agents; Z88.8 Allergy status to other drugs, medicaments and biological substances; I15.0 Renovascular hypertension; R00.0 Tachycardia, unspecified; R41.9 Unspecified symptoms and signs involving cognitive functions and awareness; I46.9 Cardiac arrest, cause unspecified; J98.2 Interstitial emphysema; I95.9 Hypotension, unspecified